=== PATIENT | female | born 1930 | race Caucasian/White ===

== ENCOUNTER 2017-11-11 09:55 | Outpatient (CLI) | payer MEDICARE, OTHER ==
--- NOTE | 2017-11-11 12:53 | CT ---
ABDOMEN AND PELVIS CT SCAN WITH IV CONTRAST: History: 87-year-old female with history of absent bowel sounds. History of prior mass found on vaginal ultras ound. Weight loss, incontinence, burning in the bladder. History of uterine cancer with prior hystere ctomy. Comparison: 04-24-[address]; pelvic CT 12-17-16 FINDINGS: There is a somewhat mosaic nonspecific appearance to the visualized lower lungs. The liver, gallbladd er, and spleen appear unremarkable. Again noted is a stable 1.3 x 1.8 cm diameter cystic focus in the region of the pancreas. Right and left adrenal glands are borderline in size but stable. Stable righ t renal cyst and some scarring of the left kidney as well as a 0.9 cm diameter slightly hyperdense ex ophytic focus off the anterior upper pole of the left kidney although this is stable in size when com pared to the prior 04-24-16 study. There is an approximately 4 x 6 cm diameter, somewhat lobulated sof t tissue mass noted anterior and superior to the bladder which appears to be invading the bladder wit h some associated bladder wall thickening. There is an approximately 1.4 cm diameter mass adjacent to the left side of the rectum, probably an enlarged lymph node. There appear to be several other enlar ged left pelvic lymph nodes up to 0.9 cm short axis. There is no evidence for renal hydronephrosis. T here are bilateral fat containing inguinal hernias. There is some colonic sigmoid colon diverticulosi s without acute diverticulitis. IMPRESSION: Developing large lobulated poorly circumscribed mass anterior and superior to the bladder which appea rs to invade the bladder as well as some developing adenopathy in the left perirectal region and left sided pelvis, given the history of prior uterine cancer, this is certainly suspicious for recurrent disease and metastasis. Stable right renal cyst and small exophytic hyperdense focus of the left kidn ey, unchanged from 04-24-16. Stable pancreatic cyst or cystic mass. Mild increased markings in the low er lung zones in a somewhat mosaic pattern but no evidence for overt metastasis. Normal appearing noel endix. Bilateral fat containing inguinal hernias. Sigmoid colon diverticulosis without acute divertic ulitis. CODE T POS: [facility]
[2017-11-11] MEDS ORDERED: Iopamidol 370 76% 100 ML VIAL ONE (16:29)
[2017-11-11] MEDS ORDERED: Iopamidol 370 76% 50 ML VIAL FS ONE (16:29)
== END 2017-11-11 09:56 | disposition home or self-care (01) ==
LOC: CT 09:55
PROVIDERS: ATTEND Obstetrics & Gynecology
DX: R10.2 Pelvic and perineal pain (principal); R19.11 Absent bowel sounds; N32.9 Bladder disorder, unspecified; N28.1 Cyst of kidney, acquired; K76.89 Other specified diseases of liver; K86.2 Cyst of pancreas; R91.8 Other nonspecific abnormal finding of lung field; K40.90 Unilateral inguinal hernia, without obstruction or gangrene, not specified as recurrent; K57.30 Diverticulosis of large intestine without perforation or abscess without bleeding; Z90.710 Acquired absence of both cervix and uterus
CPT/HCPCS: 74177

== ENCOUNTER → 2017-11-23 | Day surgery (SDC) | payer MEDICARE, OTHER ==
[2017-11-20 09:34] VITALS: BMI 24.1
[~2017-11-23] MED LIST: FLU VACC QS2017-18 36 mo. & older 0.5 ML SYRINGE IM ONE; Fentanyl 100 MCG/2 ML VIAL ONE; Midazolam HCl 2 mg/2 ml Vial ONE; Prevnar 13-Val Conj/PF 0.5 ML SYRINGE IM ONE; Sodium Bicarbonate 2.5 MEQ/5 ML VIAL ONE
[2017-11-23 09:26] LABS: INR-International Normal Ratio 1.3; PTT 26.6 SEC (22.9-36.1); Prothrombin Time 16.1 SEC (12.0-14.7)
--- NOTE | 2017-11-23 14:44 | CT ---
CT GUIDED RETROPERITONEAL BIOPSY: HISTORY: Patient with endometrial cancer. New pelvic mass. COMPARISON: CT abdomen and pelvis from 11/11/2017. FINDINGS: The patient is brought to the CT suite. All questions were answered. Informed consent was obtained. Time out was performed. The patient's pelvis was prepped and draped in a normal sterile fashion. Approximately 8 mL of buffe red Lidocaine was instilled into the superficial and deep soft tissues, after informed consent was ob tained and the time out was performed. A small dermatotomy was made. The mass was accessed first via a 17 gauge introducer. Subsequently, using an 18 gauge BioPince needle, a total of two 22 mm cores was obtained. Pathology confirmed adeq uacy. The patient tolerated the procedure well, without complication. IMPRESSION: Technically successful CT guided pelvic mass biopsy. POS: [facility]
== END ==
LOC: RAD 08:49
PROVIDERS: ATTEND Obstetrics & Gynecology
PROC: 0WBH3ZX Excision of Retroperitoneum, Percutaneous Approach, Diagnostic (ICD-10-PCS; principal; 2017-11-23)
DX: C67.9 Malignant neoplasm of bladder, unspecified (principal); C54.1 Malignant neoplasm of endometrium; N39.3 Stress incontinence (female) (male); L29.8 Other pruritus; I10 Essential (primary) hypertension; J45.909 Unspecified asthma, uncomplicated; N39.0 Urinary tract infection, site not specified; E78.5 Hyperlipidemia, unspecified; E07.9 Disorder of thyroid, unspecified; Z88.1 Allergy status to other antibiotic agents; Z88.8 Allergy status to other drugs, medicaments and biological substances; Z79.899 Other long term (current) drug therapy; Z98.890 Other specified postprocedural states
CPT/HCPCS: 36415; 49180; 77012; 85610; 85730; 88305; 88333; 88342; J2250; J3010

== ENCOUNTER 2017-11-24 18:36 | Inpatient (IN) | payer MEDICARE, OTHER ==
[~2017-11-24 18:36] MED LIST changes: -FLU VACC QS2017-18 36 mo. & older 0.5 ML SYRINGE IM ONE; -Fentanyl 100 MCG/2 ML VIAL ONE; +ISOVUE-370 76%-LOCM 1 ML ONE; -Midazolam HCl 2 mg/2 ml Vial ONE; -Prevnar 13-Val Conj/PF 0.5 ML SYRINGE IM ONE; -Sodium Bicarbonate 2.5 MEQ/5 ML VIAL ONE
[2017-11-24 19:29] LABS: Hemoglobin 13.5 g/dL (12.0-16.0); Mean Corpuscular HGB CONC 32.3 g/dL (32.0-36.0); Mean Corpuscular Hemoglobin 27.7 pg (27.0-31.0); Mean Corpuscular Volume 85.5 fl (81.0-99.0); Mean Platelet Volume 6.4 fL (7.4-10.4); Platelet Count 249 thou/uL (130-400); RBC Distribution Width 13.3 % (11.5-14.5); Red Blood Cell (RBC) Count 4.87 mill/uL (4.20-5.40); White Blood Cell (WBC) Count 25.4 thou/uL (4.8-10.8)
[2017-11-24 19:33] LABS: INR-International Normal Ratio 1.3; PTT 29.6 SEC (22.9-36.1); Prothrombin Time 16.4 SEC (12.0-14.7)
[2017-11-24 19:45] LABS: Band 4 % (5-11); Lymphocytes 8 % (21-51); MDiff Complete? YES; Monocytes 3 % (0-10); Neutrophil 85 % (42-75); PLT Morphology Comment Appears Adequate; RBC Morphology Normal
[2017-11-24 19:46] LABS: ALT (SGPT) 12 U/L (8-55); AST (SGOT) 14 U/L (5-34); Albumin 3.5 g/dL (3.4-4.8); Alkaline Phosphatase 106 U/L (40-150); Anion Gap 14 mmol/L (10-20); BUN (Urea Nitrogen) 20 mg/dL (9.8-20.1); Bilirubin, Total 0.4 mg/dL (0.2-1.2); Calc. Creatinine Clearance 0 mL/min (70-130); Calcium 9.6 mg/dL (7.8-10.44); Carbon Dioxide 24 mmol/L (23-31); Chloride 100 mmol/L (98-107); Estimated GFR-MDRD 58; Glucose 189 mg/dL (83-110); Potassium 3.6 mmol/L (3.5-5.1); Protein, Total 6.5 g/dL (6.0-8.3); Sodium 134 mmol/L (136-145)
[2017-11-24 19:50] LABS: CKMB 1.9 ng/mL (0-6.6); Troponin I 0.262 ng/mL (< 0.028)
--- NOTE | 2017-11-24 19:52 | RAD ---
SINGLE VIEW OF THE CHEST 11/24/17 COMPARISON: 12/17/16 HISTORY: Shortness of breath. FINDINGS: Single view of the chest shows an enlarged but stable cardiomediastinal silhouette. Increased interst itial lung markings are stable. There is no evidence of consolidation, mass, or pleural effusion. IMPRESSION: 1. No evidence of acute cardiopulmonary disease. 2. Cardiomegaly. POS: [facility]
[2017-11-24] MEDS ORDERED: MEROPENEM 1 GM/50 ML 1 GM in Premix Bag 1 BAG IVPB SCH (22:00)
[2017-11-24 22:12] LABS: Bilirubin Negative (Negative); Blood, Urine Trace (Negative); Clarity CLEAR (Clear); Glucose, Urine (Dipstick) Negative (Negative); Leukocyte Negative (Negative); Nitrite Negative (Negative); Protein, Urine (Dipstick) Negative (Neg-Trace); Urobilinogen 0.2 mg/dL (0.2-1.0)
[2017-11-24 22:13] LABS: Bacteria/HPF None Seen HPF (None Seen); Hyaline Casts/LPF 0-3 HYALINE CAST LPF (0-3 Hyaline); Pathc Cast-AUWi Flag 0.14 (0-2.49); Squamous Epithelial 0-3 HPF (0-3); WBC/HPF 0-3 HPF (0-3)
--- NOTE | 2017-11-24 22:59 | CT ---
CT OF THE ABDOMEN AND PELVIS WITH CONTRAST 11/24/17 COMPARISON: 11/11/17, CT guided biopsy 11/23/17, CT abdomen/pelvis 04/25/16. HISTORY: Shortness of breath for the past few hours. Abdominal pain. Recent bladder biopsy. TECHNIQUE: Multiple contiguous axial images were obtained in a CT of the abdomen and pelvis with contrast. Coron al reformats were performed. FINDINGS: There are hypodensities in bilateral kidneys which likely represent simple cysts. There is a 1.1 cm h yperdensity emanating from the anterior and superior pole of the left kidney which may represent a hy perdense cyst. This is grossly stable compared to the CT from 2016. The liver, gallbladder, adrenal glands, and spleen are unremarkable. There is a hypodensity in the sp [place] measuring 1.5 cm in size which likely represents a cyst and also remains stable. There is a large mass emanating from the anterior aspect of the urinary bladder. This measures 5.8 cm in greatest dimension. There is a small amount of hyperdensity adjacent to this mass which may repre sent a small amount of post biopsy hemorrhage. A small amount of air adjacent to the mass and in the abdominal wall are from recent biopsy. A large amount of pneumoperitoneum is not seen. A small amount of free fluid is seen in the pelvis. Scattered diverticula are see in the colon. The small bowel is normal in caliber. There is a 1.9 cm m ass adjacent to the rectum which may represent an enlarged perirectal lymph node. There are mildly en larged lymph nodes on the left pelvic sidewall and enlarged lymph node in the left perirectal space m easuring 1.9 cm in size. No retroperitoneal adenopathy is seen. Atherosclerotic calcifications are s een in the aorta. IMPRESSION: 1. Bladder mass with adjacent mild stranding changes likely representing a small amount of post biopsy edema and small amount of hemorrhage. 2. Diverticulosis. 3. Enlarged left pelvis and perirectal lymph nodes. 4. Bilateral renal cysts. 5. There is a hyperdensity emanating from the left kidney which appears stable and likely repres ents a hyperdense cyst. 6. Pancreatic cyst. POS: [facility]
[2017-11-24 23:38] LABS: Troponin I 0.488 ng/mL (< 0.028)
[2017-11-25] MEDS ORDERED: Mag-Al 1200 mg/1200 mg/30 ML UDCUP PO PRN (00:57)
[2017-11-25] MEDS ORDERED: Ondansetron ODT 4 MG TAB PO PRN (00:57)
[2017-11-25] MEDS ORDERED: Sodium Chloride 0.65% Nasal 44 ML BOT EA NARE PRN (00:57)
[2017-11-25] MEDS ORDERED: hydrALAZINE 20 MG/ML VIAL SLOW IVP PRN (00:57)
[2017-11-25] MEDS ORDERED: Zolpidem Tartrate 5 MG TAB PO PRN (00:57)
[2017-11-25] MEDS ORDERED: Ondansetron HCl/PF 4 MG/2 ML Vial IVP PRN (00:57)
[2017-11-25] MEDS ORDERED: Loratadine 10 MG TAB PO PRN (00:57)
[2017-11-25] MEDS ORDERED: Senokot 8.6 MG TAB PO PRN (00:57)
[2017-11-25] MEDS ORDERED: Eucerin (Mineral Oil/Petrolatum,White) 30 gm Jar TOP PRN (00:57)
[2017-11-25] MEDS ORDERED: Chloraseptic Spray 180 ml Bottle PO PRN (00:57)
[2017-11-25] MEDS ORDERED: Loperamide HCl 2 MG CAP PO PRN (00:57)
[2017-11-25] MEDS ORDERED: Milk Of Magnesia 30 ML UDCUP PO PRN (00:57)
[2017-11-25] MEDS ORDERED: Artificial Tears 18 DROP/0.9 ML EA EYE PRN (00:57)
[2017-11-25 01:33] VITALS: BMI 26.4
[2017-11-25 02:26] LABS: Troponin I 0.667 ng/mL (< 0.028)
--- NOTE | 2017-11-25 02:41 | HP ---
PRIMARY CARE PHYSICIAN: Dr. Hunter Pinto. DATE OF SERVICE: 11/24/2017 REASON FOR ADMISSION: Dyspnea, sepsis, non-ST elevation IN, type 2. HISTORY OF PRESENT ILLNESS: An 87-year-old female who has underlying history of paroxysmal atrial fibrillation on chronic anticoagulation therapy with warfarin. Warfarin therapy was stopped 5 days ago, because patient had bladder biopsy on 11/23/2017, subsequently, pathology report came back as positive of moderately differentiated adenocarcinoma. This patient has underlying history of endometrial cancer, and she had a hysterectomy done. Patient is following Dr. Ralph Gutierrez. Patient's tractor mechanic apprentice is Dr. Torres. The patient at this time, came to emergency room with a complaint of intermittent shortness of breath for last couple of days, patient did not have any fever, but she was found with leukocytosis with bandemia. She denies any chest pain. She denies any orthopnea, PND, or leg swelling. She denies any calf tenderness. She denies any pleuritic chest pain. In the emergency room, patient had elevated troponin and second set of troponin was significantly abnormal. Her BNP was also elevated. Patient had CT of abdomen and pelvis, which showed bladder mass, diverticulosis. Chest x-ray was done, which showed cardiomegaly without any acute process. REVIEW OF SYSTEMS: Please see my HPI for pertinent positive and negative. All other review of systems reviewed and negative except as mentioned in the HPI: Constitutional: Weight loss or gain, ability to conduct usual activities. Skin : Rash, itching. Eyes: Double vision, pain. ENT/Mouth: Nose bleeding, neck stiffness, pain, tenderness. Cardiovascular: Palpitations, dyspnea on exertion , orthopnea. Respiratory: Shortness of breath, wheezing, cough, hemoptysis, fever, or night sweats. Gastrointestinal: Poor appetite, abdominal pain, heartburn, nausea, vomiting, constipation, or diarrhea. Genitourinary: Urgency , frequency, dysuria, nocturia. Musculoskeletal: Pain, swelling. Neurologic/ Psychiatric: Anxiety, depression. Allergy/Immunologic: Skin rash, bleeding tendency. PAST MEDICAL HISTORY: Paroxysmal atrial fibrillation, uterine cancer, hypothyroidism, hypertension, dyslipidemia, osteoarthritis. PAST SURGICAL HISTORY: Hysterectomy, cataract surgery, back surgery, rotator cuff repair bilaterally. PAST PSYCHIATRIC HISTORY: Reviewed and negative. SOCIAL HISTORY: Patient is . She lives in [facility]. No history of tobacco, alcohol, or illicit drug abuse. FAMILY HISTORY: Positive for coronary artery disease to mother, father, and mother of congestive heart failure. ALLERGIES: ACETAMINOPHEN, LIPITOR, CALCIUM CARBONATE, CELEBREX, KEFLEX, CIPRO, CODEINE, DOXYCYCLINE, CRESTOR, LEXAPRO, LEVAQUIN NIACIN, OPIOID, LYRICA, PROPOXYPHENE, ZANAFLEX. CURRENT HOME MEDICATIONS: Cardizem-CD 180 mg p.o. daily, warfarin 5 mg p.o. daily, hydrochlorothiazide 12.5 mg p.o. daily, ramipril 2.5 mg p.o. daily, Synthroid 88 mcg p.o. daily, Singulair 10 mg p.o. daily, Xalatan eyedrops at bedtime, tramadol 50 mg twice daily, Flonase nasal spray b.i.d., vitamin D3 of 5000 units p.o. daily, coenzyme Q10 of 100 mg p.o. daily, dehydroepiandrosterone 25 mg p.o. daily, probiotic 1 capsule daily. EMERGENCY ROOM COURSE: Patient has received aspirin 324 mg, vancomycin 1 gram, and meropenem 1 gram. PHYSICAL EXAMINATION: VITAL SIGNS: On arrival, blood pressure 117/93, pulse 78, respiratory rate 18, temperature 97.9, saturation 89% on room air, weight 69.4 kilograms. GENERAL: Patient is currently alert, awake, no obvious acute distress. HEAD: Normocephalic, atraumatic. EYES: Pupils round, reactive to light. Extraocular muscle intact. ENT: Oropharynx within normal limits. Moist mucous membranes. No oral lesion , no pharyngeal erythema, no exudate. NECK: Supple, no JVD, no thyromegaly, no carotid bruit, no jugular venous distention. LUNGS: Clear to auscultation without any rhonchi or rales. CARDIAC: S1, S2 appears regular. No murmur, no gallop, no rub. ABDOMEN: Soft, bowel sounds present. No peritoneal sign, no guarding, no rigidity, no rebound, no peritoneal sign, no organomegaly, no mass. BACK: Unremarkable, no CVA tenderness. EXTREMITIES: Upper extremity passive movement of all joints are normal. Lower extremities: No edema. Good peripheral pulsation. SKIN: No skin rash other than the patient does have surgical biopsy site, which is covered with Band-Aid and site is clean and healthy. HEMATOLOGICAL SYSTEM: No lymphadenopathy. PSYCHIATRIC: Normal affect. SIGNIFICANT LABORATORY DATA: EKG showing normal sinus rhythm, premature atrial complexes, right incomplete bundle branch block pattern, first-degree AV block. Chest x-ray based on my review, cardiomegaly without any acute process. CBC: WBC 25.4, hemoglobin 13.5, platelet 249 with bandemia. INR 1.3. BMP: Sodium 134, potassium 3.6, chloride 100, carbon dioxide 24, anion gap 14, BUN 20 , creatinine 0.91, glucose 189, calcium 9.6. LFT: AST 14, ALT 12, alkaline phosphatase was 106, albumin 3.5. CK-MB 1.9, troponin 0.262 and then 0.488. BNP 421.6. Urinalysis unremarkable. ASSESSMENT AND PLAN: 1. Dyspnea on exertion. At this point, EKG is nonspecific. She has elevated troponin. I am suspicious for angina equivalent versus new-onset congestive heart failure given elevated BNP. At this point, patient will need serial cardiac enzymes. Cardiology will be consulted. Echocardiography will be obtained and we will treat with Lasix 20 mg IV daily. We will also continue with the DuoNeb therapy q.6 hourly p.r.n. basis. 2. Non-ST segment elevation myocardial infarction, type 2. This could be an angina equivalent, but patient does not have any EKG changes, does not have any chest pain. We will consult Cardiology for their opinion. Echocardiography will be obtained. We will do serial cardiac enzymes x3. 3. Leukocytosis. Looking at old record, patient does have chronically elevated WBC count. This patient has bandemia and few days ago, patient has bladder biopsy done so worrisome for infection and that is why we will send blood culture, urine culture, and start empiric antibiotic therapy and we will monitor for culture result and narrow down antibiotic spectrum. 4. Paroxysmal atrial fibrillation, currently in sinus rhythm. Continue Cardizem-CD 180 mg p.o. daily. Patient was off on warfarin therapy and now, we will restart warfarin therapy. 5. Chronic anticoagulation. Patient was off on warfarin therapy for bladder biopsy. Now, we will start warfarin therapy and monitor PT/INR on daily basis. 6. Adenocarcinoma originated from endometrial cancer. This patient's pathology report is consistent with moderately differentiated adenocarcinoma of endometrial type. At this point, we will consult TILE FITTER doctor, Dr. Ralph Gutierrez as well as palliative care team as well for goal of care. May consider Oncology evaluation during this admission for their opinion. 7. Hypertension. Patient is currently on Cardizem-CD 180 mg p.o. daily along with hydrochlorothiazide and ramipril, and we will titrate blood pressure medication while in hospital. 8. Glaucoma. Continue Xalatan eyedrops at bedtime. 9. Asthma. Continue Singulair 10 mg p.o. daily, DuoNeb q.6 hourly p.r.n. 10. Hypothyroidism. Continue Synthroid 88 mcg p.o. daily. 11. Deep venous thrombosis prophylaxis. Patient is already on low warfarin therapy. 12. Gastrointestinal prophylaxis. Pepcid 20 mg p.o. b.i.d. 13. Code status: Patient is DNR. This was confirmed with the patient. She does not want to be resuscitated in case of cardiopulmonary arrest. She does not want to try even CPR or intubation in case of cardiopulmonary arrest and she made decision for DNR and that order is written and she does not have any surrogate decision maker. Disposition plan based on clinical course. We are expecting patient's stay in hospital more than 2 midnights. Plan of care discussed with the patient in detail. MTDD
[2017-11-25 03:32] LABS: #Basophils 0.1 thou/uL (0.0-0.2); #Eosinphils 0.1 thou/uL (0.0-0.7); #Lymphocytes 2.5 thou/uL (1.20-3.40); #Monocytes 1.6 thou/uL (0.11-0.59); #Neutrophils 20.3 thou/uL (1.40-6.50); %Basophils 0.2 % (0.0-1.0); %Eosinophils 0.4 % (0.0-10.0); %Lymphocytes 10.1 % (21.0-51.0); %Monocytes 6.4 % (0.0-10.0); %Neutrophils 82.9 % (42.0-75.0); Hemoglobin 12.6 g/dL (12.0-16.0); Mean Corpuscular HGB CONC 31.9 g/dL (32.0-36.0); Mean Corpuscular Hemoglobin 27.3 pg (27.0-31.0); Mean Corpuscular Volume 85.5 fl (81.0-99.0); Mean Platelet Volume 6.5 fL (7.4-10.4); Platelet Count 208 thou/uL (130-400); RBC Distribution Width 13.3 % (11.5-14.5); White Blood Cell (WBC) Count 24.4 thou/uL (4.8-10.8)
[2017-11-25 03:39] LABS: INR-International Normal Ratio 1.4; PTT 25.6 SEC (22.9-36.1); Prothrombin Time 17.2 SEC (12.0-14.7)
[2017-11-25 03:43] LABS: Anion Gap 13 mmol/L (10-20); BUN (Urea Nitrogen) 17 mg/dL (9.8-20.1); Calc. Creatinine Clearance 62 mL/min (70-130); Calcium 9.4 mg/dL (7.8-10.44); Carbon Dioxide 24 mmol/L (23-31); Chloride 101 mmol/L (98-107); Estimated GFR-MDRD 78; Glucose 116 mg/dL (83-110); Potassium 3.3 mmol/L (3.5-5.1); Sodium 135 mmol/L (136-145)
[2017-11-25 03:49] LABS: CKMB 3.1 ng/mL (0-6.6)
[2017-11-25 03:50] LABS: Troponin I 0.517 ng/mL (< 0.028)
[2017-11-25 03:51] LABS: Critical Call Chem Troponin I RESULT DECREASING
[2017-11-25] MEDS: MEROPENEM 1 GM/50 ML 1 GM in Premix Bag 1 BAG IVPB SCH ×2 (05:42→14:00)
[2017-11-25] MEDS: Levothyroxine Sodium 88 MCG TAB PO SCH (05:43)
[2017-11-25 08:03] LABS: CKMB 3.1 ng/mL (0-6.6)
[2017-11-25 08:11] LABS: Critical Call Chem Troponin I RESULT DECREASING; Troponin I 0.329 ng/mL (< 0.028)
--- NOTE | 2017-11-25 08:27 | PDOC.EVN ---
Event Note - Event Note Event Note: QUALITY ASSURANCE TEST PROGRAM MANAGER SERVICE Ms Tuttle is 87 year old WF well known to me with h/o Stage 1 Grade 1 endometrial cancer-with superficial myometrial invasion woho underwent robotic tlh/bso approximately 18 months ago. Patient had low risk stage and tumor grade and was not candidate for adjuvant therapy such as XRT/Chemo. Recent exam and clinical history noted for pelvic mass and patient pain. CT guided biopsy performed 11/23 on mass c/w adenocarcinoma -moderately differentiated. Admit 11/24 for sepsis and possible [place]. Recommend oncology/ rad onc consult for recurrent endometrial cancer therapy once patient stabilized medically.
[2017-11-25] MEDS ORDERED: Enoxaparin Sodium 40 MG/0.4 ML SYRINGE SC SCH (09:00)
[2017-11-25] MEDS: Furosemide 20 MG/2 ML VIAL SLOW IVP SCH (11:19)
[2017-11-25] MEDS: Fluticasone Propionate Nasal Spray 16 gm Bottle NASAL SCH (11:20)
[2017-11-25] MEDS: Famotidine 20 MG TAB PO SCH ×2 (11:20→21:48)
[2017-11-25] MEDS: traMADol HCl 50 MG TAB PO SCH ×2 (11:20→21:49)
[2017-11-25] MEDS: Ubidecarenone 50 MG CAP PO SCH (11:21)
[2017-11-25] MEDS: Aspirin 325 MG TAB PO SCH (11:21)
[2017-11-25] MEDS: Hydrochlorothiazide 25 MG TAB PO SCH (11:22)
[2017-11-25] MEDS: Lactinex Tablet PO SCH (11:22)
[2017-11-25] MEDS ORDERED: Potassium Chloride 20 MEQ TAB PO SCH (12:00)
[2017-11-25] MEDS ORDERED: Digoxin 0.5 MG/2 ML AMP SLOW IVP SCH (12:00)
--- NOTE | 2017-11-25 16:55 | PDOC.PN ---
- Subjective Encounter Start Date: 11/25/17 Encounter Start Time: 10:15 -: old records requested/rev Pt seen and examined, chart reviewed in its entirety, this is my first visit with this patient. Case discussed over the phone with Dr Rosas. She has requested Onc eval for treatment options. Pt complains of pain to her abdomen, no F/C, +nausea, no vomiting. no D/C, no CP or SOB 10 point ROS performed and neg for all systems except as per HPI - Objective Resuscitation Status: Resuscitation Status DNR:Do Not Resuscitate MAR Reviewed: Yes Vital Signs & Weight: Vital Signs (12 hours) Pulse BP 11/25/17 15:00 83 11/25/17 11:22 131/78 Weight Weight 158 lb 9.6 oz I&O: 11/24/17 11/25/17 11/26/17 06:59 06:59 06:59 Intake Total 340 Balance 340 Result Diagrams: 11/25/17 03:19 11/25/17 03:19 Radiology Reviewed by me: Yes EKG Reviewed by me: Yes Phys Exam - Physical Examination Constitutional: NAD HEENT: PERRLA, moist MMs, sclera anicteric, oral pharynx no lesions Neck: no nodes, no JVD, supple, full ROM Respiratory: no wheezing, no rales, no rhonchi, clear to auscultation bilateral Cardiovascular: RRR, no significant murmur, no rub Gastrointestinal: soft, no distention, positive bowel sounds diffusely tender, particularly in SP region Musculoskeletal: pulses present, edema present Neurological: non-focal, normal sensation, moves all 4 limbs Lymphatic: no nodes Psychiatric: normal affect, A&O x 3 Skin: no rash, normal turgor, cap refill <2 seconds Dx/Plan (1) Chronic back pain Code(s): M54.9 - DORSALGIA, UNSPECIFIED; G89.29 - OTHER CHRONIC PAIN Status: Chronic Qualifiers: Back pain location: low back pain Back pain laterality: bilateral Sciatica presence: with sciatica Sciatica laterality: bilateral sciatica Qualified Code(s): M54.42 - Lumbago with sciatica, left side; M54.41 - Lumbago with sciatica, right side; M54.41 - Lumbago with sciatica, right side; G89.29 - Other chronic pain; G89.29 - Other chronic pain Comment: restarted tramadol BID (2) HTN (hypertension) Code(s): I10 - ESSENTIAL (PRIMARY) HYPERTENSION Status: Chronic Qualifiers: Hypertension type: essential hypertension Qualified Code(s): I10 - Essential (primary) hypertension (3) Asthma Code(s): J45.909 - UNSPECIFIED ASTHMA, UNCOMPLICATED Status: Acute Qualifiers: Asthma severity: mild Asthma persistence: intermittent Asthma complication type: uncomplicated Qualified Code(s): J45.20 - Mild intermittent asthma, uncomplicated (4) jail current use of anticoagulant Code(s): Z79.01 - ROLL EXAMINER (CURRENT) USE OF ANTICOAGULANTS Status: Chronic (5) Sepsis Code(s): A41.9 - SEPSIS, UNSPECIFIED ORGANISM Status: Acute Qualifiers: Sepsis type: sepsis due to unspecified organism Qualified Code(s): A41.9 - Sepsis, unspecified organism (6) Hypokalemia Code(s): E87.6 - HYPOKALEMIA Status: Acute Comment: 3.3 today, repeat in AM (7) Endometrial cancer, grade I Code(s): C54.1 - MALIGNANT NEOPLASM OF ENDOMETRIUM Status: Chronic (8) Atrial fibrillation Code(s): I48.91 - UNSPECIFIED ATRIAL FIBRILLATION Status: Chronic Comment: paroxysmal, on anticoagulation - Plan cont current plan of care, continue antibiotics, PT/OT, social sciences research scientist, out of bed/ambulate * .
[2017-11-25] MEDS ORDERED: Dronedarone HCl 400 MG TAB PO SCH (20:00)
[2017-11-25] MEDS: Warfarin Sodium 5 MG TAB PO SCH (20:11)
[2017-11-25] MEDS: Digoxin 0.5 MG/2 ML AMP SLOW IVP SCH (20:34)
[2017-11-25] MEDS: Latanoprost 0.005% Ophth Soln 2.5 ml Bottle EA EYE SCH (21:49)
[2017-11-25] MEDS: Montelukast Sodium 10 mg Tablet PO SCH (21:49)
[2017-11-25] MEDS: Metamucil PACK PO PRN (22:01)
[2017-11-26] MEDS: Fluticasone Propionate Nasal Spray 16 gm Bottle NASAL SCH ×3 (00:08→21:39)
[2017-11-26] MEDS: MEROPENEM 1 GM/50 ML 1 GM in Premix Bag 1 BAG IVPB SCH ×4 (00:12→21:41)
[2017-11-26] MEDS: Digoxin 0.5 MG/2 ML AMP SLOW IVP SCH (00:12)
[2017-11-26 05:06] LABS: ALT (SGPT) 11 U/L (8-55); AST (SGOT) 19 U/L (5-34); Albumin 2.9 g/dL (3.4-4.8); Alkaline Phosphatase 95 U/L (40-150); Anion Gap 15 mmol/L (10-20); BUN (Urea Nitrogen) 24 mg/dL (9.8-20.1); Bilirubin, Total 0.4 mg/dL (0.2-1.2); Calc. Creatinine Clearance 55 mL/min (70-130); Calcium 9.3 mg/dL (7.8-10.44); Carbon Dioxide 22 mmol/L (23-31); Chloride 101 mmol/L (98-107); Estimated GFR-MDRD 67; Globulin 3.2 g/dL (2.4-3.5); Glucose 102 mg/dL (83-110); Magnesium 2.2 mg/dL (1.6-2.6); Potassium 4.5 mmol/L (3.5-5.1); Protein, Total 6.1 g/dL (6.0-8.3); Sodium 133 mmol/L (136-145)
[2017-11-26] MEDS: Levothyroxine Sodium 88 MCG TAB PO SCH (05:41)
[2017-11-26] MEDS: Aspirin 325 MG TAB PO SCH (09:22)
[2017-11-26] MEDS: Dronedarone HCl 400 MG TAB PO SCH ×2 (09:22→17:55)
[2017-11-26] MEDS: Famotidine 20 MG TAB PO SCH ×2 (09:23→21:39)
[2017-11-26] MEDS: Digoxin 0.125 MG TAB PO SCH (09:23)
[2017-11-26] MEDS: Furosemide 20 MG/2 ML VIAL SLOW IVP SCH (09:23)
[2017-11-26] MEDS: Hydrochlorothiazide 25 MG TAB PO SCH (09:24)
[2017-11-26] MEDS: traMADol HCl 50 MG TAB PO SCH ×2 (09:24→21:40)
[2017-11-26] MEDS: Lactinex Tablet PO SCH (09:24)
[2017-11-26] MEDS: Ubidecarenone 50 MG CAP PO SCH (09:25)
--- NOTE | 2017-11-26 10:26 | ADD-CON ---
ADDENDUM DATE OF CONSULTATION: 11/25/2017 DATE OF ADMISSION: 11/24/2017 INDICATION FOR CONSULTATION: An 87-year-old female with a history of intermittent atrial fibrillatio n who was admitted to the hospital due to abdominal pain and shortness of breath. She became very sh ort of breath at home. She had a recent biopsy, which has now been diagnosed as adenocarcinoma of th e endometrial type, but she has had a laparoscopic abdominal hysterectomy and bilateral salpingo-ooph orectomy about a year and a half ago and apparently she developed some abdominal pain and CT scan was found to have abdominal mass, which was attached to the bladder apparently and this appears to be ad enocarcinoma. Biopsy was performed on Thursday and Thursday night, she started feeling rather bad or afternoon became more short of breath. She has some occasional chest heaviness. She presented to the hospital was in atrial fibrillation, rapid ventricular response. Her cardiac enzymes are rhett vated, which certainly can be attributed to the atrial fibrillation with rapid ventricular response. Her BNP was slightly elevated at 421. She did have an echocardiogram performed, which does not show any significant abnormalities as far as wall motion abnormalities. She has a normal ejection fracti on. She did have some right-sided dilatation. The left atrium was also mildly dilated, she has ejec tion fraction of 60%-65%. She has some mild aortic valve sclerosis. She did have atrial fibrillatio n noted on the study, it is difficult to determine whether or not she has diastolic dysfunction, but this would be a good possibility. At this time, she has the only complains of some chest discomfort. She is breathing well relatively comfortable. She has no complaints of shortness of breath or ches t discomfort at the time that I am visiting with her. Please refer to notes already dictated by the nurse practitioner. PHYSICAL EXAMINATION: VITAL SIGNS: Blood pressure 131/78, heart rates in the 80s-100s and shows atrial fibrillation at thi s time, respiratory rate is about 18-20. She is afebrile. HEENT: Shows head to be normocephalic, atraumatic. Carotid pulses are present. There were no signi ficant bruits. CHEST: Clear to auscultation. CARDIOVASCULAR: Exam reveals an irregularly irregular rhythm. ABDOMEN: Tender throughout, she has a small bandage of incisional area for the biopsy. Otherwise, t here were no significant abnormalities. She does have bowel sounds present. EXTREMITIES: Showed no clubbing, cyanosis, or edema. Pedal pulses are present. NEUROLOGICAL: She appears to be intact. SKIN: Warm and dry. LABORATORY DATA: Shows white blood cell count of 24,400, hemoglobin 12.6. Creatinine 0.7 with a sod ium of 125, and troponin I's are noted for 0.448 on admission and then increased up to 0.67, is now d ecreased a little bit down to 0.329. BNP was slightly elevated at 429. IMPRESSION: 1. Atrial fibrillation with rapid ventricular response causing abnormal cardiac enzymes be slightly elevated and some chest discomfort. There were no significant EKG changes to indicate ischemia. I w ould continue her present medications. She had been on Coumadin in the past for intermittent atrial fibrillation. She has been on diltiazem for rate control and has been intermittently in and out of a trial fibrillation. She has been on diltiazem for rate control and is intermittently in and out of a trial fibrillation today and also has been given digoxin. I will start her on Multaq and hopefully, we will able to maintain the sinus rhythm at this time. 2. Abnormal cardiac enzymes, which are related to the atrial fibrillation. At this time, I will jus t continue her present medications. She is not a good candidate at this time to undergo cardiac cath eterization or stress testing. She has not been found to have any coronary artery disease in the pas t, and she has a normal ejection fraction by echocardiogram today. 3. Recurrence of adenocarcinoma, I believe Oncology has been consulted to see the patient for furthe r evaluation and treatment. 4. History of hypertension, this is under good control at this time. 5. Possible sepsis with elevated WBC of 24,400, this will be also dealt with by the primary care ser vice and Oncology. From a cardiac standpoint, I believe, she is relatively stable overall. We will need to have rate control of the atrial fibrillation if we cannot maintain sinus rhythm. For the other past medical history, social history, family history, review of systems, please refer t o the notes dictated by the nurse practitioner.
--- NOTE | 2017-11-26 10:31 | CON ---
DATE OF CONSULTATION: 11/25/2017 PRIMARY CARE PHYSICIAN: Hunter Pinto M.D. PRIMARY FAMILY AND CONSUMER SCIENCES PROFESSOR: Carmen Torres M.D. REFERRING PHYSICIAN: Corie Rodrigez M.D. REASON FOR CARDIOLOGY CONSULT: Dyspnea and elevated troponin level. HISTORY OF PRESENT ILLNESS: Ms. Tuttle is an [id number] female with a significant history of paroxysmal atrial fibrillation, COPD/asthma and hypertension. The patient had a bladder biopsy on 11/23/2017. The patient's daughter called Dr. Torres' office on the day and reported that the nurse assisting for a bladder biopsy found out the patient was having irregular tachycardia and the patient was complained of fatigue at that time. The patient was advised to follow up with Dr. Torres' office on next day, 11/24/2017. However, the patient cancelled the appointment in the morning because she was doing well; however, at the lunch time, she felt really weak and tired, and shortness of breath. Around 4pm, the patient caregiver noticed the patient was more weak, complained of fatigue and shortness of breath, so the patient was transferred to the Emergency Department for the further evaluation and treatment. 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 The patient has a history of endometrial cancer and total hysterectomy in 05/2016. The patient had experienced of palpitation and fluttering in her chest and worsening shortness of breath yesterday prior to presenting to the Emergency Department and also the patient experienced of mild tightness at the upper chest. However, the patient denies any chest pain or numbness in the left upper extremities, nausea or vomiting, or any other complaints. She also denies dizziness or lightheadedness. The patient's Coumadin was held prior to the bladder biopsy and resumed from today by patient' s primary care doctor during this admission. The patient's INR today was 1.4. During the initial Cardiology consult assessment, the patient denies chest pain or discomfort in her chest, palpitation or fluttering in her chest and shortness of breath is stable with 1.5 liters nasal cannula. Denies dizziness, lightheadedness or any other cardiac complaints. The patient remained in sinus rhythm until 10:40 this morning. The patient converts back to atrial fibrillation with heart rate in the 110s to 130s since 10:40 this morning. The patient had an echocardiogram done in 05/2017, which shows an EF of 65%, grade I diastolic dysfunction, mild LAE, mild AV calcification, mild tricuspid regurgitation, trace mitral valve regurgitation, and mild MAC and frequent PVCs. The patient had a stress test and the last stress test was in 12/2009, which shows ejection fraction 65% with normal myocardial function with no ischemia. EKG in Dr. Torres' office shows sinus rhythm with first-degree AV block. The last EKG was done in 09/10/2017, which shows sinus rhythm with first -degree AV block, heart rate is 69. She does not have any cardiac catheterization. PAST MEDICAL HISTORY: 1. Paroxysmal atrial fibrillation. 2. Hypertension. 3. Hypothyroidism. 4. Hyperlipidemia. 5. COPD/asthma. 6. History of endometrial adenocarcinoma, grade 1. PAST SURGICAL HISTORY: 1. Total hysterectomy in 05/2016. 2. Cataract removed. 3. Skin cancer removed from the nose. FAMILY HISTORY: Significant family history of coronary artery disease. Her mother due to the congestive heart failure. SOCIAL HISTORY: She is a . [facility]. She recently has a sitter and a caregiver. She denies any tobacco, alcohol or illicit drug abuse. ALLERGIES: TYLENOL, LIPITOR, CALCIUM CARBONATE, CELEBREX, KEFLEX, CIPRO, CODEINE, DOXYCYCLINE, CRESTOR, LEXAPRO, LEVAQUIN, LYRICA, PROPOXYPHENE, and ZANAFLEX. HOME MEDICATIONS: Flonase 1 spray each naris every day, vitamin C, Mucinex, Singulair ER 10 mg once a day, Dilantin eye drop each eyes every day, cranberry concentrate 1 tablet once a day, multivitamin 1 tablet once a day, Krill oil, Loop-3 one tablet once a day, Coumadin dosage adjusted as depends on the INR level, Synthroid 88 mcg once a day, vitamin D3 5000 units once a day, probiotic 1 tablet once a day, CoQ10 100 mg once a day, DHEA 25 mg once a day, tramadol 50 mg twice a day for back pain, ramipril 2.5 mg once a day, diltiazem CD 180 mg once a day and hydrochlorothiazide 12.5 mg once a day. REVIEW OF SYSTEMS: The following complete review of systems is negative, unless otherwise mentioned in the HPI or below. CONSTITUTIONAL: No weight loss or gain. Sense of well-being, ability to conduct usual activity, exercise tolerance. SKIN: Rash, itching, change in hair growth or loss, nail changes, breast lump, tenderness, swelling or nipple discharge. EYES: No vision change, double vision, tearing, blind spots, pain. She wear glasses. HENT: Headache, vertigo, lightheadedness, nose bleeding, cold, obstruction, discharge, dental difficulty, gingival bleeding, dentures, neck stiffness, pain , obstruction, discharge, tenderness mass in thyroid or other areas. CARDIOVASCULAR: Precordial pain, substernal distress, syncope, nocturnal dyspnea, edema, cyanosis, heart murmur, varicosis, claudication. RESPIRATORY: No wheezing, stridor, cough or hemoptysis. GASTROINTESTINAL: Poor appetite, dysphagia, indigestion, abdominal pain, heartburn, eructation, nausea, vomiting, tenderness, constipation, diarrhea, abdominal stool. GENITOURINARY: Urgency, frequency, dysuria, nocturia, hematuria, polyuria, oliguria, unusual color of urine. MUSCULOSKELETAL: She had chronic back pain, but denies swelling, redness, heat of muscle or joint, limitation of motion, atrophy, cramps. NEUROLOGIC: Seizure coverage, conversion, paralyzed, tremor, incoordination. PSYCHIATRIC: Emotional problem, anxiety, depression, previous psychiatric care , unusual perception. PHYSICAL EXAMINATION: VITAL SIGNS: Blood pressure 116/68, pulse is in the 110s to 130s with AFib, temperature 98.0, 2 liters nasal cannula and O2 sat 96%. GENERAL: A well developed, well nourished without any acute distress. HEAD: Normocephalic and atraumatic. EYES: Extraocular muscle movement intact, wears glasses. ENT: Oral mucosa moist without lesion. NECK: No JVD. Neck is supple. Normal range of motion. LUNGS: Diminished at the bases, but no wheezing, rales or rhonchi noted. CARDIOVASCULAR: Irregularly irregular. No significant murmur, hives, thrill or bruits noted. There are 2+ pulses in the bilateral dorsal pedis, posterior tibial and popliteal. No edema in the lower extremities. Carotid pulses are present without bruits, rubs or thrills. ABDOMEN: Soft and bowel sounds are present. No palpitation at this time due to history of a bladder cancer. MUSCULOSKELETAL: Able to move all extremities, complained of the back pain. SKIN: Warm and dry. No skin rash or lesion or bruise noted. NEUROLOGIC: Alert and oriented x4, awake, normal affect, nonfocal, PSYCHIATRIC: Normal mood. Affect normal. IMAGING AND LABORATORY DATA: EKG: The telemetry EKG shows AFib with rapid ventricular response with a heart rate of 110-130s. WBC 20.4, hemoglobin 12.6, hematocrit 39.3 and platelet 208. INR 1.4 today. Sodium 135, potassium 3.3, BUN 17, creatinine 0.71. AST 14, ALT 12 and CK-MB is 3.1. Troponin is 0.262, 0.488, 0.667, 0.517 and 0.329. BNP is 421.6. Chest x-ray shows no evidence of acute cardiopulmonary disease with cardiomyopathy. CT scan of the abdomen shows bladder mass with adjustment of mild stranding change likely represents a small amount of post biopsy edema and a small amount of hemorrhage and diverticulitis and enlarged left pelvis and perirectal lymph nodes. Bilateral renal cysts and pancreatic cyst. ASSESSMENT AND PLAN: 1. Dyspnea on exertion, possible secondary to the chronic obstructive pulmonary disease, asthma attack. The condition is stable with 1.5 liters nasal cannula. She is on Singulair, which is managed by the patient's primary care doctor and the patient's echocardiogram was done today and the results are pending. The patient's BNP was slightly elevated today. She had a history of grade I diastolic dysfunction. She is on Lasix 20 mg IV push and hydrochlorothiazide. Again, the patient's breathing condition is stable at this moment. We would like to continue to monitor and again an echocardiogram was taken today and the result is pending at this moment. 2. Elevated troponin level. The patient's troponin level was elevated today, possible due to atrial fibrillation with rapid ventricular response, but due to the patient's age and possibly the patient is not a good candidate for cardiac catheterization. The patient's 12-lead EKG did not show any ST segment change. The patient's condition is stable. At this moment, we would like to continue to monitor on telemetry and the patient is on aspirin 325 mg once a day and JJ inhibitor. She is on the beta cuco due to a history of chronic obstructive pulmonary disease. 3. Atrial fibrillation with rapid ventricular response. The patient's heart rate is up to the 110s to 130s. She is on diltiazem 180 once a day IV push was started from today and changed to p.o. every day after IV digoxin to finish. 4. Hypertension. The patient's blood pressure is stable at this moment. We would like to continue current blood pressure medication and adjust as appropriate. 5. History of chronic obstructive pulmonary disease/asthma. The patient's condition is stable at this moment. We would like to continue to monitor. 6. Hypothyroidism. The patient is on levothyroxine, which is managed by primary care doctor. The patient's TSH will be checked tomorrow to make sure the patient and the TSH level was within the normal range. 7. Hypokalemia. The patient's potassium level is 3.3 today. The potassium chloride 40 mEq given one dose today ordered and the patient's potassium level will be checked tomorrow morning. 8. Positive for adenocarcinoma by bladder biopsy. Per patient, already discussed with Dr. Rosas, who is the patient's [employer] doctor. The patient possibly will be referred to the Oncology consult and also palliative care team consult was done today. Thank you very much for following Cardiology Service to participate in care of this patient. We will follow along with the patient's care team and make further recommendation as appropriate. AIMEE
--- NOTE | 2017-11-26 14:01 | CON ---
DATE OF CONSULTATION: 11/26/2017 REASON FOR CONSULTATION: Endometrial adenocarcinoma. HISTORY OF PRESENT ILLNESS: Ms. Tuttle is a pleasant 87-year-old female with a history o f stage I endometrial cancer in 2016. She underwent a robotic TLH-BSO approximately 18 months ago. She had low risk stage and tumor grade and was not a candidate for adjuvant therapy at that time. Mo st recently, she began to have pelvic pain and presented to Dr. Rosas for evaluation. A CT of the a bdomen and pelvis showed a soft tissue mass approximately 4 x 6 cm anterior and superior to the bladd er, it was invading the bladder wall. She then underwent a CT guided biopsy which confirmed moderate ly differentiated adenocarcinoma compatible with endometrial primary. She is ER positive. She prese nted to the emergency room on 11/24/2017 with complaints of shortness of breath, burning with urinati on. She had a mildly elevated troponin at admission. Dr. Pruitt was consulted her and felt this was due to her atrial fibrillation and not due to ischemia. She has been treated with empiric antibiotic s. Prior to this admission, the patient lived in an independent living at [facility]. Cu rrently, she denies any chest pain or shortness of breath. No abdominal discomfort, constipation or diarrhea. She still has dysuria, but it is improved with antibiotics. She does complain of weakness and fatigue. PAST MEDICAL HISTORY: 1. Paroxysmal atrial fibrillation. 2. Stage I endometrial carcinoma, status post TLH-BSO. 3. Hypothyroidism. 4. Hypertension. 5. Dyslipidemia. 6. Osteoarthritis. PAST SURGICAL HISTORY: 1. TLH-BSO. 2. Cataract surgery 3. Back surgery. 4. Rotator cuff repair. ALLERGIES: Multiple drug allergies as noted on medical record. HOME MEDICATIONS: 1. Cardizem CD 180 mg daily. 2. Flonase daily. 3. Hydrochlorothiazide 12.5 mg daily. 4. Probiotic daily. 5. Synthroid 88 mcg daily. 6. Singulair daily. 7. Altace 2.5 mg daily. 8. Tramadol 50 mg b.i.d. 9. CoQ10 daily. 10. Coumadin 5 mg daily. FAMILY HISTORY: Noncontributory. SOCIAL HISTORY: , lives in [facility]. No alcohol, tobacco or illicit ambar g use. REVIEW OF SYSTEMS: Twelve point review of system is negative except for noted in HPI. PHYSICAL EXAMINATION: VITAL SIGNS: Temperature is 97.5, pulse is 80, respiratory rate 18, BP is 121/58. She is 99% on 2 l iters. GENERAL: This is a well-developed, well-nourished female in no acute distress. HEENT: Normocephalic, atraumatic. Pupils equal and reactive to light. NECK: Supple. CARDIOVASCULAR: Irregular rate and rhythm. LUNGS: Clear. ABDOMEN: Soft, mildly tender to palpation. EXTREMITIES: No clubbing, cyanosis or edema. SKIN: No rash. HEMATOLOGIC: No petechia or purpura. NEUROLOGIC: Nonfocal. PSYCHIATRIC: The patient is alert and oriented and appropriate. PERTINENT LABORATORY AND X-RAYS: Current WBCs are 24.4, hemoglobin 12.6, hematocrit 39.3, platelet c ount is 208,000, 83% neutrophils, 10% lymphocytes. PT is 17.2, INR is 1.4, PTT is 25.6. Sodium is 1 33, potassium 4.5, chloride 101, CO2 is 22, BUN is 24, creatinine 0.81, calcium is 9.3, magnesium 2.2 , bilirubin is 0.4, AST is 19, ALT is 11, alkaline phosphatase is 95, serum total protein is 6.1, alb umin 2.9, globulin 3.2, troponin is 0.329. Abdominal pelvis and CT confirms a soft tissue mass invad ing the bladder wall. ASSESSMENT AND PLAN: 1. Metastatic endometrial adenocarcinoma. 2. Atrial fibrillation with rapid ventricular response. 3. Possible sepsis. DISCUSSION: The patient is on antibiotics and has improved. She has been evaluated for her cardiac issues and is found to be stable. Chemotherapy with radiation is the standard of care; however, patient's advance d age and medical problems. She also has transportation issues, her barriers to treatment. Case has been discussed with Dr. Varela. Recommend recovery from her acute illness and follow up in the out patient setting to discuss various options. I will check a CA-125 while she is here.
[2017-11-26] MEDS: Warfarin Sodium 5 MG TAB PO SCH (17:55)
[2017-11-26] MEDS: Metamucil PACK PO PRN (18:29)
--- NOTE | 2017-11-26 19:29 | PDOC.CTH ---
Cardiology Progress Note - Subjective The pt seen and examined. No overnight events. No cardiac complaints. The pt complains of intermittent chocking like sensation with cough. However, she does not cough or having SOB with meals. - Objective Vital Signs Temp Pulse Resp BP Pulse Ox 11/26/17 16:00 97.4 F L 101 H 20 127/64 93 L 11/26/17 09:10 97.5 F L 80 18 121/58 L 99 11/26/17 08:00 97.5 F L 80 18 99 Weight 158 lb 9.6 oz 11/25/17 11/26/17 11/27/17 06:59 06:59 06:59 Intake Total 340 1080 960 Output Total 400 Balance 340 1080 560 - Physical Examination General/Neuro: alert & oriented x3 Neck: no JVD present Lungs: CTA (diminished at bases) Heart: other: (irregular) Abdomen: soft Extremities: other: (No edemas) - Telemetry Telemetry Rhythm: AFib HR 80s - Labs Result Diagrams: 11/25/17 03:19 11/26/17 03:59 Troponin/CKMB CK-MB (CK-2) 3.1 ng/mL (0-6.6) 11/25/17 07:26 Troponin I 0.329 ng/mL (< 0.028) H* 11/25/17 07:26 - Assessment/Plan 1. Afib with RVR - HR well controlled with Diltiazem 180mg daily, digoxin 0.125mg daily, and Multaq 400mg BID. On Coumadin 5mg. Recheck INR tomorrow. 2. SOB due to asthma - stable with 1LNC; stable 3. HTN - stable with current med; cont. monitor 4. Hypothyroidism - managed by PCP 5. Endometrial cancer - at this moment, she refused chemo and radiation tx; managed by oncologist. SAGE reviewed Review of Systems - Review of Systems Constitutional: reports: no symptoms reported EENTM: reports: see HPI Respiratory: reports: see HPI Cardiac (ROS): reports: no symptoms reported ABD/GI: reports: no symptoms reported : reports: no symptoms reported Musculoskeletal: reports: no symptoms reported
--- NOTE | 2017-11-26 21:19 | PDOC.PN ---
- Subjective Encounter Start Date: 11/26/17 Encounter Start Time: 08:40 Pt feeling a little better, awaiting onc eval. Dr Torres ocnsulted, suspect she herve see her alter today. Pt denies F/C, does feel 'dizzy' which she admits is a spinning sensation she started having when she sits up, +nausea, no vomiting 10 point ROS performed and neg for all systems except as above - Objective Resuscitation Status: Resuscitation Status DNR:Do Not Resuscitate MAR Reviewed: Yes Vital Signs & Weight: Vital Signs (12 hours) Temp Pulse Resp BP Pulse Ox 11/26/17 19:00 97.7 F 93 18 112/59 L 93 L 11/26/17 16:00 97.4 F L 101 H 20 127/64 93 L Weight Weight 158 lb 9.6 oz I&O: 11/25/17 11/26/17 11/27/17 06:59 06:59 06:59 Intake Total 340 1080 960 Output Total 400 Balance 340 1080 560 Result Diagrams: 11/25/17 03:19 11/26/17 03:59 EKG Reviewed by me: Yes Phys Exam - Physical Examination Constitutional: NAD HEENT: PERRLA, moist MMs, sclera anicteric, oral pharynx no lesions Neck: no nodes, no JVD, supple, full ROM Respiratory: no wheezing, no rhonchi bibasilar crackles present Cardiovascular: no rub, irregular 3/6 hSM LLSB, irregularly irregular. Gastrointestinal: soft, non-tender, no distention, positive bowel sounds Musculoskeletal: pulses present, edema present Neurological: non-focal, normal sensation, moves all 4 limbs Lymphatic: no nodes Psychiatric: normal affect, A&O x 3 Skin: no rash, normal turgor, cap refill <2 seconds Dx/Plan (1) Chronic back pain Code(s): M54.9 - DORSALGIA, UNSPECIFIED; G89.29 - OTHER CHRONIC PAIN Status: Chronic Qualifiers: Back pain location: low back pain Back pain laterality: bilateral Sciatica presence: with sciatica Sciatica laterality: bilateral sciatica Qualified Code(s): M54.42 - Lumbago with sciatica, left side; M54.41 - Lumbago with sciatica, right side; M54.41 - Lumbago with sciatica, right side; G89.29 - Other chronic pain; G89.29 - Other chronic pain Comment: restarted tramadol BID (2) HTN (hypertension) Code(s): I10 - ESSENTIAL (PRIMARY) HYPERTENSION Status: Chronic Qualifiers: Hypertension type: essential hypertension Qualified Code(s): I10 - Essential (primary) hypertension (3) Asthma Code(s): J45.909 - UNSPECIFIED ASTHMA, UNCOMPLICATED Status: Acute Qualifiers: Asthma severity: mild Asthma persistence: intermittent Asthma complication type: uncomplicated Qualified Code(s): J45.20 - Mild intermittent asthma, uncomplicated (4) skilled nursing current use of anticoagulant Code(s): Z79.01 - [facility] (CURRENT) USE OF ANTICOAGULANTS Status: Chronic (5) Sepsis Code(s): A41.9 - SEPSIS, UNSPECIFIED ORGANISM Status: Acute Qualifiers: Sepsis type: sepsis due to unspecified organism Qualified Code(s): A41.9 - Sepsis, unspecified organism Comment: UCx neg, afebrile, WBC slightly vidhya,r but still elevated. (6) Hypokalemia Code(s): E87.6 - HYPOKALEMIA Status: Acute Comment: 3.3 today, repeat in AM (7) Endometrial cancer, grade I Code(s): C54.1 - MALIGNANT NEOPLASM OF ENDOMETRIUM Status: Chronic Comment: mets to bladder. Onc consulted, will follow up on their recommendations (8) Atrial fibrillation Code(s): I48.91 - UNSPECIFIED ATRIAL FIBRILLATION Status: Chronic Comment: paroxysmal, on anticoagulation (9) Demand ischemia Code(s): I24.8 - OTHER FORMS OF ACUTE ISCHEMIC HEART DISEASE Status: Acute Comment: due to Afib with RVR, SOB comes and goes, no F/c, cards to see - Plan cont current plan of care, plan discussed w/ family, continue antibiotics, PT/OT , social services specialist, out of bed/ambulate will ask palliative care to see, will follow up on Cardiology and Onc resul * .
[2017-11-26] MEDS: Montelukast Sodium 10 mg Tablet PO SCH (21:40)
[2017-11-26] MEDS: Latanoprost 0.005% Ophth Soln 2.5 ml Bottle EA EYE SCH (21:40)
[2017-11-26] MEDS: PRASTERONE 25 MG PO SCH (21:59)
[2017-11-27 05:17] LABS: INR-International Normal Ratio 1.9; Prothrombin Time 22.4 SEC (12.0-14.7)
[2017-11-27 05:31] LABS: Anion Gap 14 mmol/L (10-20); BUN (Urea Nitrogen) 34 mg/dL (9.8-20.1); Calc. Creatinine Clearance 51 mL/min (70-130); Calcium 9.2 mg/dL (7.8-10.44); Carbon Dioxide 22 mmol/L (23-31); Chloride 100 mmol/L (98-107); Estimated GFR-MDRD 61; Glucose 96 mg/dL (83-110); Magnesium 2.1 mg/dL (1.6-2.6); Potassium 3.9 mmol/L (3.5-5.1); Sodium 132 mmol/L (136-145)
[2017-11-27] MEDS: MEROPENEM 1 GM/50 ML 1 GM in Premix Bag 1 BAG IVPB SCH ×3 (05:34→21:45)
[2017-11-27] MEDS: Levothyroxine Sodium 88 MCG TAB PO SCH (05:34)
[2017-11-27 06:07] LABS: Band 10 % (5-11); Hemoglobin 13.1 g/dL (12.0-16.0); Lymphocytes 10 % (21-51); MDiff Complete? YES; Mean Corpuscular HGB CONC 32.3 g/dL (32.0-36.0); Mean Corpuscular Volume 86.7 fl (81.0-99.0); Mean Platelet Volume 7.7 fL (7.4-10.4); Monocytes 4 % (0-10); Neutrophil 76 % (42-75); PLT Morphology Comment Appears Adequate; Platelet Count 232 thou/uL (130-400); RBC Distribution Width 13.6 % (11.5-14.5); Red Blood Cell (RBC) Count 4.69 mill/uL (4.20-5.40); White Blood Cell (WBC) Count 29.6 thou/uL (4.8-10.8)
[2017-11-27] MEDS: Digoxin 0.125 MG TAB PO SCH (09:16)
[2017-11-27] MEDS: Dronedarone HCl 400 MG TAB PO SCH ×2 (09:16→16:12)
[2017-11-27] MEDS: Lactinex Tablet PO SCH (09:17)
[2017-11-27] MEDS: Fluticasone Propionate Nasal Spray 16 gm Bottle NASAL SCH ×2 (09:17→21:43)
[2017-11-27] MEDS: Hydrochlorothiazide 25 MG TAB PO SCH (09:17)
[2017-11-27] MEDS: Famotidine 20 MG TAB PO SCH ×2 (09:17→21:43)
[2017-11-27] MEDS: Furosemide 20 MG/2 ML VIAL SLOW IVP SCH (09:17)
[2017-11-27] MEDS: traMADol HCl 50 MG TAB PO SCH ×2 (09:18→21:43)
[2017-11-27] MEDS: Ubidecarenone 50 MG CAP PO SCH (09:18)
--- NOTE | 2017-11-27 09:33 | RAD ---
PORTABLE CHEST 1 VIEW: Date: 11/27/17 Time: 0715 hours HISTORY: Hypoxia. FINDINGS/IMPRESSION: Comparison made with exam of 11/24/17. The heart size is enlarged. Chronic changes are again seen. No lobar consolidation, pneumothoraces, f rank pulmonary edema, or large effusions are identified. POS: [facility]
--- NOTE | 2017-11-27 14:54 | PDOC.CTH ---
Cardiology Progress Note - Subjective Pt. seen and eval. No new complaints. She does not want further treatment for her cancer yet. - ROS chest pain - Objective Vital Signs Temp Pulse Pulse Pulse Resp BP BP 11/27/17 12:17 97.7 F 77 18 11/27/17 08:45 97.7 F 85 18 11/27/17 07:55 75 80 135/65 150/73 H 11/27/17 04:00 97.3 F L 77 20 BP Pulse Ox Pulse Ox Pulse Ox 11/27/17 12:17 109/59 L 90 L 11/27/17 08:45 157/70 H 96 11/27/17 07:55 93 L 93 L 11/27/17 04:00 129/58 L 92 L Weight 158 lb 3.2 oz 11/26/17 11/27/17 11/28/17 06:59 06:59 06:59 Intake Total 1080 1200 Output Total 400 200 Balance 1080 800 -200 - Physical Examination General/Neuro: alert & oriented x3 Neck: carotid US brisk Lungs: CTA Heart: RRR, other: (irreg.) Abdomen: soft - Telemetry Telemetry Rhythm: afib. rate controlled. - Labs Result Diagrams: 11/27/17 04:06 11/27/17 04:06 Troponin/CKMB CK-MB (CK-2) 3.1 ng/mL (0-6.6) 11/25/17 07:26 Troponin I 0.329 ng/mL (< 0.028) H* 11/25/17 07:26 - Assessment/Plan 1. Afib with RVR - HR well controlled with Diltiazem 180mg daily, digoxin 0.125mg daily, and Multaq 400mg BID. On Coumadin 5mg. Recheck INR tomorrow. 2. SOB due to asthma - stable with 1LNC; stable 3. HTN - stable with current med; cont. monitor 4. Hypothyroidism - managed by PCP 5. Endometrial cancer - at this moment, she refused chemo and radiation tx; managed by oncologist. SAGE reviewed Review of Systems - Review of Systems EENTM: reports: no symptoms reported Respiratory: reports: no symptoms reported Cardiac (ROS): reports: no symptoms reported ABD/GI: reports: constipated : reports: no symptoms reported Musculoskeletal: reports: no symptoms reported Neurological: reports: no symptoms reported
[2017-11-27] MEDS: Metamucil PACK PO PRN (16:12)
[2017-11-27] MEDS: Warfarin Sodium 5 MG TAB PO SCH (16:12)
--- NOTE | 2017-11-27 20:17 | PDOC.PN ---
- Subjective Encounter Start Date: 11/27/17 Encounter Start Time: 10:45 Pt feeling better overall, not wanting to do much wiht PT/OT, but felt better about it after we talked. no F/C, no N./V.d.C. Just back to bed after trying to have a BM. Last BM was yesterday. Pt has decided she does not want to pursue cancer Rx at this time Case discussed with Dr Torres. Rate controlled, remains in paroxysmal afib. 10 point ROS performed and neg for all systems except as per HPI - Objective Resuscitation Status: Resuscitation Status DNR:Do Not Resuscitate MAR Reviewed: Yes Vital Signs & Weight: Vital Signs (12 hours) Temp Pulse Pulse Pulse Resp BP BP 11/27/17 16:17 97.7 F 81 20 11/27/17 14:50 77 93 107/66 119/58 L 11/27/17 12:17 97.7 F 77 18 11/27/17 08:45 97.7 F 85 18 BP BP Pulse Ox Pulse Ox 11/27/17 16:17 123/64 90 L 11/27/17 14:50 119/63 96 11/27/17 12:17 109/59 L 90 L 11/27/17 08:45 157/70 H 96 Weight Weight 158 lb 3.2 oz I&O: 11/26/17 11/27/17 11/28/17 06:59 06:59 06:59 Intake Total 1080 1200 Output Total 400 200 Balance 1080 800 -200 Result Diagrams: 11/27/17 04:06 11/27/17 04:06 Radiology Reviewed by me: Yes EKG Reviewed by me: Yes Phys Exam - Physical Examination Constitutional: NAD HEENT: PERRLA, moist MMs, sclera anicteric, oral pharynx no lesions Neck: no nodes, no JVD, supple, full ROM Respiratory: no wheezing, no rales, no rhonchi, clear to auscultation bilateral Cardiovascular: RRR, no significant murmur, no rub Gastrointestinal: soft, non-tender, no distention, positive bowel sounds Musculoskeletal: pulses present, edema present Neurological: non-focal, normal sensation, moves all 4 limbs Lymphatic: no nodes Psychiatric: normal affect, A&O x 3 Skin: no rash, normal turgor, cap refill <2 seconds Dx/Plan (1) Chronic back pain Code(s): M54.9 - DORSALGIA, UNSPECIFIED; G89.29 - OTHER CHRONIC PAIN Status: Chronic Qualifiers: Back pain location: low back pain Back pain laterality: bilateral Sciatica presence: with sciatica Sciatica laterality: bilateral sciatica Qualified Code(s): M54.42 - Lumbago with sciatica, left side; M54.41 - Lumbago with sciatica, right side; M54.41 - Lumbago with sciatica, right side; G89.29 - Other chronic pain; G89.29 - Other chronic pain Comment: restarted tramadol BID (2) HTN (hypertension) Code(s): I10 - ESSENTIAL (PRIMARY) HYPERTENSION Status: Chronic Qualifiers: Hypertension type: essential hypertension Qualified Code(s): I10 - Essential (primary) hypertension (3) Asthma Code(s): J45.909 - UNSPECIFIED ASTHMA, UNCOMPLICATED Status: Acute Qualifiers: Asthma severity: mild Asthma persistence: intermittent Asthma complication type: uncomplicated Qualified Code(s): J45.20 - Mild intermittent asthma, uncomplicated (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 (6) Hypokalemia Code(s): E87.6 - HYPOKALEMIA Status: Acute Comment: 3.3 today, repeat in AM (7) Endometrial cancer, grade I Code(s): C54.1 - MALIGNANT NEOPLASM OF ENDOMETRIUM Status: Chronic Comment: mets to bladder. Onc consulted, will follow up on their recommendations (8) Atrial fibrillation Code(s): I48.91 - UNSPECIFIED ATRIAL FIBRILLATION Status: Chronic Comment: paroxysmal, on anticoagulation (9) Demand ischemia Code(s): I24.8 - OTHER FORMS OF ACUTE ISCHEMIC HEART DISEASE Status: Acute Comment: due to Afib with RVR, SOB comes and goes, no F/c, cards to see - Plan cont current plan of care, PT/OT, high school social studies tutor, respiratory therapy, out of bed/ambulate * . Pt wanting to go to SNF for rehab. [facility] [phone], very high
[2017-11-27] MEDS: Montelukast Sodium 10 mg Tablet PO SCH (21:43)
[2017-11-27] MEDS: Latanoprost 0.005% Ophth Soln 2.5 ml Bottle EA EYE SCH (21:43)
[2017-11-27] MEDS: Diabetic Tussin 200 MG/10 ML UDCUP PO PRN (21:45)
[2017-11-28 05:36] LABS: INR-International Normal Ratio 2.4
[2017-11-28] MEDS: Levothyroxine Sodium 88 MCG TAB PO SCH (05:53)
[2017-11-28] MEDS: MEROPENEM 1 GM/50 ML 1 GM in Premix Bag 1 BAG IVPB SCH ×3 (05:53→22:05)
[2017-11-28 05:55] LABS: ALT (SGPT) 14 U/L (8-55); AST (SGOT) 17 U/L (5-34); Alkaline Phosphatase 101 U/L (40-150); Anion Gap 14 mmol/L (10-20); BUN (Urea Nitrogen) 37 mg/dL (9.8-20.1); Band 2 % (5-11); Bilirubin, Total 0.5 mg/dL (0.2-1.2); Calc. Creatinine Clearance 49 mL/min (70-130); Carbon Dioxide 24 mmol/L (23-31); Chloride 98 mmol/L (98-107); Estimated GFR-MDRD 60; Globulin 2.7 g/dL (2.4-3.5); Glucose 99 mg/dL (83-110); Hemoglobin 12.1 g/dL (12.0-16.0); Lymphocytes 7 % (21-51); MDiff Complete? YES; Mean Corpuscular HGB CONC 32.4 g/dL (32.0-36.0); Mean Corpuscular Hemoglobin 27.7 pg (27.0-31.0); Mean Corpuscular Volume 85.6 fl (81.0-99.0); Mean Platelet Volume 7.1 fL (7.4-10.4); Monocytes 5 % (0-10); Neutrophil 86 % (42-75); Platelet Count 224 thou/uL (130-400); Potassium 3.6 mmol/L (3.5-5.1); Protein, Total 5.7 g/dL (6.0-8.3); RBC Distribution Width 13.1 % (11.5-14.5); Red Blood Cell (RBC) Count 4.37 mill/uL (4.20-5.40); Sodium 132 mmol/L (136-145); White Blood Cell (WBC) Count 26.3 thou/uL (4.8-10.8)
[2017-11-28] MEDS: Dronedarone HCl 400 MG TAB PO SCH ×2 (08:58→16:42)
[2017-11-28] MEDS: Digoxin 0.125 MG TAB PO SCH (08:58)
[2017-11-28] MEDS: Furosemide 20 MG/2 ML VIAL SLOW IVP SCH (08:59)
[2017-11-28] MEDS: Lactinex Tablet PO SCH (08:59)
[2017-11-28] MEDS: Fluticasone Propionate Nasal Spray 16 gm Bottle NASAL SCH ×2 (08:59→22:03)
[2017-11-28] MEDS: Famotidine 20 MG TAB PO SCH ×2 (08:59→22:03)
[2017-11-28] MEDS: Hydrochlorothiazide 25 MG TAB PO SCH (08:59)
[2017-11-28] MEDS: traMADol HCl 50 MG TAB PO SCH ×2 (09:00→22:04)
[2017-11-28] MEDS: Ubidecarenone 50 MG CAP PO SCH (09:00)
[2017-11-28] MEDS: Diabetic Tussin 200 MG/10 ML UDCUP PO PRN ×3 (09:06→22:09)
[2017-11-28] MEDS: Metamucil PACK PO PRN ×2 (09:06→22:09)
[2017-11-28] MEDS: Warfarin Sodium 5 MG TAB PO SCH (16:42)
--- NOTE | 2017-11-28 20:52 | PDOC.PN ---
- Subjective Encounter Start Date: 11/28/17 Encounter Start Time: 11:40 Pt feels 'bad' but cant elucidate more. denies SON, no chest pain, unsuccessfuly tried ot have a BM, but had a good one yesterday. NO F/c, no N/V/ D/c, decreased appetite. Tele has been stable, no acute events 10 point ROs performed and neg for all systems except as per HPI - Objective Resuscitation Status: Resuscitation Status DNR:Do Not Resuscitate Vital Signs & Weight: Vital Signs (12 hours) Temp Pulse Pulse Resp BP BP Pulse Ox 11/28/17 16:39 97.6 F 72 20 111/56 L 97 11/28/17 14:53 71 117/57 L 11/28/17 13:26 98 F 67 20 111/57 L 95 11/28/17 08:53 98.1 F 77 18 124/59 L 94 L Weight Weight 157 lb 14.4 oz I&O: 11/27/17 11/28/17 11/29/17 06:59 06:59 06:59 Intake Total 1200 240 Output Total 400 200 Balance 800 40 Result Diagrams: 11/29/17 04:19 11/29/17 04:19 Radiology Reviewed by me: Yes EKG Reviewed by me: Yes Phys Exam - Physical Examination Constitutional: NAD HEENT: PERRLA, moist MMs, sclera anicteric, oral pharynx no lesions Neck: no nodes, no JVD, supple, full ROM Respiratory: no wheezing, no rales, no rhonchi, clear to auscultation bilateral Cardiovascular: no significant murmur, no rub, irregular Gastrointestinal: soft, non-tender, no distention, positive bowel sounds Musculoskeletal: pulses present, edema present Neurological: non-focal, normal sensation, moves all 4 limbs Lymphatic: no nodes Psychiatric: normal affect, A&O x 3 Skin: no rash, normal turgor, cap refill <2 seconds Dx/Plan (1) HTN (hypertension) Code(s): I10 - ESSENTIAL (PRIMARY) HYPERTENSION Status: Chronic Qualifiers: Hypertension type: essential hypertension Qualified Code(s): I10 - Essential (primary) hypertension (2) Asthma Code(s): J45.909 - UNSPECIFIED ASTHMA, UNCOMPLICATED Status: Acute Qualifiers: Asthma severity: mild Asthma persistence: intermittent Asthma complication type: uncomplicated Qualified Code(s): J45.20 - Mild intermittent asthma, uncomplicated (3) [facility] current use of anticoagulant Code(s): Z79.01 - FDC (CURRENT) USE OF ANTICOAGULANTS Status: Chronic (4) Sepsis Code(s): A41.9 - SEPSIS, UNSPECIFIED ORGANISM Status: Acute Qualifiers: Sepsis type: sepsis due to unspecified organism Qualified Code(s): A41.9 - Sepsis, unspecified organism Comment: UCx neg, afebrile, WBC better but still elevated with bands (5) Hypokalemia Code(s): E87.6 - HYPOKALEMIA Status: Acute Comment: 3.3 today, repeat in AM (6) Endometrial cancer, grade I Code(s): C54.1 - MALIGNANT NEOPLASM OF ENDOMETRIUM Status: Chronic Comment: mets to bladder. Onc consulted, pt has decided to not pursue any treatment at this time (7) Atrial fibrillation Code(s): I48.91 - UNSPECIFIED ATRIAL FIBRILLATION Status: Chronic Comment: paroxysmal, on anticoagulation (8) Demand ischemia Code(s): I24.8 - OTHER FORMS OF ACUTE ISCHEMIC HEART DISEASE Status: Acute Comment: due to Afib with RVR, SOB comes and goes, no F/c, cards to see (9) Chronic back pain Code(s): M54.9 - DORSALGIA, UNSPECIFIED; G89.29 - OTHER CHRONIC PAIN Status: Chronic Qualifiers: Back pain location: low back pain Back pain laterality: bilateral Sciatica presence: with sciatica Sciatica laterality: bilateral sciatica Qualified Code(s): M54.42 - Lumbago with sciatica, left side; M54.41 - Lumbago with sciatica, right side; M54.41 - Lumbago with sciatica, right side; G89.29 - Other chronic pain; G89.29 - Other chronic pain Comment: restarted tramadol BID, better - Plan cont current plan of care, continue antibiotics, PT/OT, social security specialist, respiratory therapy, out of bed/ambulate * . arranging SNF rehab at [facility], hopefully approved and ready Thursday
[2017-11-28] MEDS: Montelukast Sodium 10 mg Tablet PO SCH (22:04)
[2017-11-28] MEDS: Latanoprost 0.005% Ophth Soln 2.5 ml Bottle EA EYE SCH (22:04)
[2017-11-29 05:16] LABS: INR-International Normal Ratio 2.9; Prothrombin Time 31.2 SEC (12.0-14.7)
[2017-11-29 05:29] LABS: Anion Gap 14 mmol/L (10-20); BUN (Urea Nitrogen) 36 mg/dL (9.8-20.1); Calc. Creatinine Clearance 55 mL/min (70-130); Calcium 9.1 mg/dL (7.8-10.44); Carbon Dioxide 25 mmol/L (23-31); Chloride 98 mmol/L (98-107); Estimated GFR-MDRD 68; Glucose 87 mg/dL (83-110); Magnesium 2.1 mg/dL (1.6-2.6); Potassium 3.6 mmol/L (3.5-5.1); Sodium 133 mmol/L (136-145)
[2017-11-29 05:57] LABS: Band 11 % (5-11); Lymphocytes 8 % (21-51); MDiff Complete? YES; Neutrophil 81 % (42-75)
[2017-11-29 05:58] LABS: Hemoglobin 11.9 g/dL (12.0-16.0); Mean Corpuscular HGB CONC 32.7 g/dL (32.0-36.0); Mean Corpuscular Volume 85.6 fl (81.0-99.0); Mean Platelet Volume 7.9 fL (7.4-10.4); Platelet Count 262 thou/uL (130-400); RBC Distribution Width 13.1 % (11.5-14.5); Red Blood Cell (RBC) Count 4.26 mill/uL (4.20-5.40); White Blood Cell (WBC) Count 26.4 thou/uL (4.8-10.8)
[2017-11-29] MEDS ORDERED: Meropenem 1 GM in Sodium Chloride 0.9% 100 ML IVPB SCH (06:00)
[2017-11-29] MEDS: Levothyroxine Sodium 88 MCG TAB PO SCH (06:38)
[2017-11-29] MEDS: Digoxin 0.125 MG TAB PO SCH (09:59)
[2017-11-29] MEDS: Dronedarone HCl 400 MG TAB PO SCH ×2 (10:00→18:20)
[2017-11-29] MEDS: Ubidecarenone 50 MG CAP PO SCH (10:01)
[2017-11-29] MEDS: Lactinex Tablet PO SCH (10:02)
[2017-11-29] MEDS: Furosemide 20 MG/2 ML VIAL SLOW IVP SCH (10:02)
[2017-11-29] MEDS: Famotidine 20 MG TAB PO SCH ×2 (10:02→22:57)
[2017-11-29] MEDS: Fluticasone Propionate Nasal Spray 16 gm Bottle NASAL SCH ×2 (10:02→22:57)
[2017-11-29] MEDS: traMADol HCl 50 MG TAB PO SCH ×2 (10:03→22:58)
[2017-11-29] MEDS: Hydrochlorothiazide 25 MG TAB PO SCH (10:16)
--- NOTE | 2017-11-29 12:16 | PDOC.PN ---
- Subjective Encounter Start Date: 11/29/17 Encounter Start Time: 10:00 pt doesnt feel good, but cannot elaborate. walked about 5 feet iwth PT, but complains she doesnt have her own walker here. Complains of SOB, but minimal cough, no fevers or chills, no sputum, no hemoptysis. complains of constipation but had a good BM. labs reviewed, no chils, sweats, or rigors, no N/V/D 10 point ROS performed and neg for all systems except as per HPI - Objective Resuscitation Status: Resuscitation Status DNR:Do Not Resuscitate MAR Reviewed: Yes Vital Signs & Weight: Vital Signs (12 hours) Temp Pulse Resp BP BP Pulse Ox 11/29/17 10:00 132/60 11/29/17 09:59 70 11/29/17 07:41 98.6 F 70 18 93 L 11/29/17 07:40 98.6 F 70 18 132/60 93 L 11/29/17 04:32 97 11/29/17 04:00 98.4 F 70 14 117/56 L 97 11/29/17 02:29 94 L Weight Weight 157 lb 12.8 oz I&O: 11/28/17 11/29/17 11/30/17 06:59 06:59 06:59 Intake Total 240 530 240 Output Total 200 100 Balance 40 430 240 Result Diagrams: 11/29/17 04:19 11/29/17 04:19 EKG Reviewed by me: Yes Phys Exam - Physical Examination Constitutional: NAD HEENT: PERRLA, moist MMs, sclera anicteric, oral pharynx no lesions Neck: no nodes, no JVD, supple, full ROM Respiratory: no wheezing, no rales, no rhonchi, clear to auscultation bilateral Cardiovascular: no rub, irregular murmur stable Gastrointestinal: soft, non-tender, no distention, positive bowel sounds Musculoskeletal: no edema, pulses present Neurological: non-focal, normal sensation, moves all 4 limbs Lymphatic: no nodes Psychiatric: normal affect, A&O x 3 Skin: no rash, normal turgor, cap refill <2 seconds Dx/Plan (1) HTN (hypertension) Code(s): I10 - ESSENTIAL (PRIMARY) HYPERTENSION Status: Chronic Qualifiers: Hypertension type: essential hypertension Qualified Code(s): I10 - Essential (primary) hypertension (2) Asthma Code(s): J45.909 - UNSPECIFIED ASTHMA, UNCOMPLICATED Status: Chronic Qualifiers: Asthma severity: mild Asthma persistence: intermittent Asthma complication type: uncomplicated Qualified Code(s): J45.20 - Mild intermittent asthma, uncomplicated (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 Code(s): Z79.01 - NURSING HOME (CURRENT) USE OF ANTICOAGULANTS Status: Chronic Comment: INR up to 2.9, pharmacy managing (4) Sepsis Code(s): A41.9 - SEPSIS, UNSPECIFIED ORGANISM Status: Acute Qualifiers: Sepsis type: sepsis due to unspecified organism Qualified Code(s): A41.9 - Sepsis, unspecified organism Comment: UCx neg, afebrile, WBC better but still elevated with bands, CXR neg, no symptoms, no abd discomfort (5) Hypokalemia Code(s): E87.6 - HYPOKALEMIA Status: Acute Comment: 3.3 today, repeat in AM (6) Endometrial cancer, grade I Code(s): C54.1 - MALIGNANT NEOPLASM OF ENDOMETRIUM Status: Chronic Comment: mets to bladder. Onc consulted, pt has decided to not pursue any treatment at this time (7) Atrial fibrillation Code(s): I48.91 - UNSPECIFIED ATRIAL FIBRILLATION Status: Chronic Comment: paroxysmal, on anticoagulation (8) Demand ischemia Code(s): I24.8 - OTHER FORMS OF ACUTE ISCHEMIC HEART DISEASE Status: Acute Comment: due to Afib with RVR, SOB comes and goes, no F/c, cards without new recs (9) Chronic back pain Code(s): M54.9 - DORSALGIA, UNSPECIFIED; G89.29 - OTHER CHRONIC PAIN Status: Chronic Qualifiers: Back pain location: low back pain Back pain laterality: bilateral Sciatica presence: with sciatica Sciatica laterality: bilateral sciatica Qualified Code(s): M54.42 - Lumbago with sciatica, left side; M54.41 - Lumbago with sciatica, right side; M54.41 - Lumbago with sciatica, right side; G89.29 - Other chronic pain; G89.29 - Other chronic pain Comment: restarted tramadol BID, better - Plan cont current plan of care, PT/OT, social services assistant, respiratory therapy, out of bed/ambulate * . PT deconditioned. [place] [facility] for rehab pending approval, hopefully tomorrow.
[2017-11-29] MEDS: Warfarin Sodium 5 MG TAB PO SCH (18:20)
[2017-11-29] MEDS: Latanoprost 0.005% Ophth Soln 2.5 ml Bottle EA EYE SCH (22:58)
[2017-11-29] MEDS: Montelukast Sodium 10 mg Tablet PO SCH (22:58)
[2017-11-30 05:05] LABS: INR-International Normal Ratio 3.3; Prothrombin Time 35.4 SEC (12.0-14.7)
[2017-11-30 05:35] LABS: Band 3 % (5-11); Hemoglobin 12.2 g/dL (12.0-16.0); Lymphocytes 8 % (21-51); MDiff Complete? YES; Mean Corpuscular HGB CONC 32.2 g/dL (32.0-36.0); Mean Corpuscular Hemoglobin 28.2 pg (27.0-31.0); Mean Corpuscular Volume 87.8 fl (81.0-99.0); Mean Platelet Volume 7.4 fL (7.4-10.4); Monocytes 3 % (0-10); Neutrophil 86 % (42-75); Platelet Count 299 thou/uL (130-400); RBC Distribution Width 13.1 % (11.5-14.5); Red Blood Cell (RBC) Count 4.32 mill/uL (4.20-5.40); White Blood Cell (WBC) Count 30.1 thou/uL (4.8-10.8)
[2017-11-30] MEDS: Levothyroxine Sodium 88 MCG TAB PO SCH (06:01)
[2017-11-30] MEDS: Fluticasone Propionate Nasal Spray 16 gm Bottle NASAL SCH ×2 (09:36→21:39)
[2017-11-30] MEDS: Furosemide 20 MG/2 ML VIAL SLOW IVP SCH (09:36)
[2017-11-30] MEDS: Hydrochlorothiazide 25 MG TAB PO SCH (09:37)
[2017-11-30] MEDS: Ubidecarenone 50 MG CAP PO SCH (09:37)
[2017-11-30] MEDS: Lactinex Tablet PO SCH (09:38)
[2017-11-30] MEDS: Digoxin 0.125 MG TAB PO SCH (09:38)
[2017-11-30] MEDS: traMADol HCl 50 MG TAB PO SCH ×2 (09:38→21:32)
[2017-11-30] MEDS: Dronedarone HCl 400 MG TAB PO SCH ×2 (09:38→19:26)
[2017-11-30] MEDS: Famotidine 20 MG TAB PO SCH ×2 (09:39→21:33)
[2017-11-30] MEDS: Diabetic Tussin 200 MG/10 ML UDCUP PO PRN ×2 (09:42→19:26)
--- NOTE | 2017-11-30 09:57 | PDOC.PN ---
- Subjective Encounter Start Date: 11/30/17 Encounter Start Time: 11:00 Subjective: Patient with trouble swallowing pills this AM. Chronic pain. Dysuria. -: Hematuria. No other symptoms. - Objective Resuscitation Status: Resuscitation Status DNR:Do Not Resuscitate MAR Reviewed: Yes Vital Signs & Weight: Vital Signs (12 hours) Temp Pulse Resp BP BP Pulse Ox 11/30/17 09:39 123/64 11/30/17 09:38 77 11/30/17 07:42 98.9 F 62 18 123/64 11/30/17 05:08 94 L 11/30/17 04:00 98.1 F 68 14 135/63 92 L Weight Weight 157 lb 14.4 oz I&O: 11/29/17 11/30/17 12/01/17 06:59 06:59 06:59 Intake Total 530 1080 Output Total 100 350 Balance 430 730 Result Diagrams: 11/30/17 04:04 11/29/17 04:19 Phys Exam - Physical Examination Constitutional: NAD HEENT: moist MMs Respiratory: no wheezing, no rales, no rhonchi Cardiovascular: RRR, no significant murmur Gastrointestinal: soft, positive bowel sounds TTP suprapubic, mild, no guarding Musculoskeletal: no edema Neurological: non-focal, moves all 4 limbs Psychiatric: A&O x 3 Deviation from normal: depressed appearing Dx/Plan (1) Atrial fibrillation Code(s): I48.91 - UNSPECIFIED ATRIAL FIBRILLATION Status: Chronic Comment: paroxysmal, on anticoagulation (2) [facility] current use of anticoagulant Code(s): Z79.01 - USP (CURRENT) USE OF ANTICOAGULANTS Status: Chronic Comment: INR up to 3.3, pharmacy managing (3) Demand ischemia Code(s): I24.8 - OTHER FORMS OF ACUTE ISCHEMIC HEART DISEASE Status: Acute Comment: due to Afib with RVR, SOB comes and goes, no F/c, cards without new recs (4) Hypokalemia Code(s): E87.6 - HYPOKALEMIA Status: Resolved (5) Sepsis Code(s): A41.9 - SEPSIS, UNSPECIFIED ORGANISM Status: Ruled-out Qualifiers: Sepsis type: sepsis due to unspecified organism Qualified Code(s): A41.9 - Sepsis, unspecified organism Comment: UCx neg, afebrile, WBC better but still elevated with bands, CXR neg, no symptoms, no abd discomfort (6) Asthma Code(s): J45.909 - UNSPECIFIED ASTHMA, UNCOMPLICATED Status: Chronic Qualifiers: Asthma severity: mild Asthma persistence: intermittent Asthma complication type: uncomplicated Qualified Code(s): J45.20 - Mild intermittent asthma, uncomplicated (7) Chronic back pain Code(s): M54.9 - DORSALGIA, UNSPECIFIED; G89.29 - OTHER CHRONIC PAIN Status: Chronic Qualifiers: Back pain location: low back pain Back pain laterality: bilateral Sciatica presence: with sciatica Sciatica laterality: bilateral sciatica Qualified Code(s): M54.42 - Lumbago with sciatica, left side; M54.41 - Lumbago with sciatica, right side; M54.41 - Lumbago with sciatica, right side; G89.29 - Other chronic pain; G89.29 - Other chronic pain Comment: restarted tramadol BID, better (8) HTN (hypertension) Code(s): I10 - ESSENTIAL (PRIMARY) HYPERTENSION Status: Chronic Qualifiers: Hypertension type: essential hypertension Qualified Code(s): I10 - Essential (primary) hypertension (9) Endometrial cancer, grade I Code(s): C54.1 - MALIGNANT NEOPLASM OF ENDOMETRIUM Status: Chronic Comment: mets to bladder. Onc consulted, pt has decided to not pursue any treatment at this time (10) Leukocytosis Code(s): D72.829 - ELEVATED WHITE BLOOD CELL COUNT, UNSPECIFIED Status: Acute Comment: negative cultures, no evidence of infection, possibly secondary to recurrent endometrial cancer invading bladder - Plan cont current plan of care, PT/OT Transfer to SNF/rehab today if ok to swallow, if not will need ST recs and -: then likely transfer tomorrow. * . - Discharge Day Encounter end time: 11:30
[2017-11-30] MEDS: Phenazopyridine HCl 97.5 MG TABLET PO PRN (10:44)
[2017-11-30] MEDS ORDERED: WARFARIN PO PRN (14:07)
[2017-11-30] MEDS ORDERED: Warfarin Sodium 5 MG TAB PO SCH (17:00)
[2017-11-30] MEDS: Montelukast Sodium 10 mg Tablet PO SCH (21:32)
[2017-11-30] MEDS: Latanoprost 0.005% Ophth Soln 2.5 ml Bottle EA EYE SCH (21:39)
[2017-12-01 06:32] LABS: Prothrombin Time 43.2 SEC (12.0-14.7)
[2017-12-01 06:49] LABS: INR-International Normal Ratio 4.3
[2017-12-01] MEDS: Levothyroxine Sodium 88 MCG TAB PO SCH (06:54)
--- NOTE | 2017-12-01 09:47 | PDOC.PN ---
- Subjective Encounter Start Date: 12/01/17 Encounter Start Time: 12:40 Subjective: Patient with persistent lower abd pain and dysuria from the cancer. -: No other specific complaints. - Objective Resuscitation Status: Resuscitation Status DNR:Do Not Resuscitate MAR Reviewed: Yes Vital Signs & Weight: Vital Signs (12 hours) Temp Pulse Resp BP Pulse Ox 12/01/17 08:00 98 F 63 18 127/58 L 94 L 12/01/17 04:00 97.5 F L 57 L 17 130/58 L 96 12/01/17 03:17 93 L Weight Weight 157 lb 12.8 oz I&O: 11/30/17 12/01/17 12/02/17 06:59 06:59 06:59 Intake Total 1080 Output Total 350 450 Balance 730 -450 Result Diagrams: 11/30/17 04:04 11/29/17 04:19 Phys Exam - Physical Examination Constitutional: NAD HEENT: moist MMs Respiratory: no wheezing, no rales, no rhonchi Cardiovascular: RRR, no significant murmur Gastrointestinal: soft, positive bowel sounds TTP suprapubically Neurological: non-focal, moves all 4 limbs Psychiatric: normal affect, A&O x 3 Dx/Plan (1) Atrial fibrillation Code(s): I48.91 - UNSPECIFIED ATRIAL FIBRILLATION Status: Chronic Comment: paroxysmal, on anticoagulation (2) alf current use of anticoagulant Code(s): 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 Status: Chronic Comment: INR up to 4, holding Coumadin for a few days (3) Demand ischemia Code(s): I24.8 - OTHER FORMS OF ACUTE ISCHEMIC HEART DISEASE Status: Acute Comment: due to Afib with RVR, SOB comes and goes, no F/c, cards without new recs (4) Hypokalemia Code(s): E87.6 - HYPOKALEMIA Status: Resolved (5) Sepsis Code(s): A41.9 - SEPSIS, UNSPECIFIED ORGANISM Status: Ruled-out Qualifiers: Sepsis type: sepsis due to unspecified organism Qualified Code(s): A41.9 - Sepsis, unspecified organism Comment: UCx neg, afebrile, WBC better but still elevated with bands, CXR neg, no symptoms, no abd discomfort (6) Asthma Code(s): J45.909 - UNSPECIFIED ASTHMA, UNCOMPLICATED Status: Chronic Qualifiers: Asthma severity: mild Asthma persistence: intermittent Asthma complication type: uncomplicated Qualified Code(s): J45.20 - Mild intermittent asthma, uncomplicated (7) Chronic back pain Code(s): M54.9 - DORSALGIA, UNSPECIFIED; G89.29 - OTHER CHRONIC PAIN Status: Chronic Qualifiers: Back pain location: low back pain Back pain laterality: bilateral Sciatica presence: with sciatica Sciatica laterality: bilateral sciatica Qualified Code(s): M54.42 - Lumbago with sciatica, left side; M54.41 - Lumbago with sciatica, right side; M54.41 - Lumbago with sciatica, right side; G89.29 - Other chronic pain; G89.29 - Other chronic pain Comment: restarted tramadol BID, better (8) HTN (hypertension) Code(s): I10 - ESSENTIAL (PRIMARY) HYPERTENSION Status: Chronic Qualifiers: Hypertension type: essential hypertension Qualified Code(s): I10 - Essential (primary) hypertension (9) Endometrial cancer, grade I Code(s): C54.1 - MALIGNANT NEOPLASM OF ENDOMETRIUM Status: Chronic Comment: mets to bladder. Onc consulted, pt has decided to not pursue any treatment at this time (10) Leukocytosis Code(s): D72.829 - ELEVATED WHITE BLOOD CELL COUNT, UNSPECIFIED Status: Acute Comment: negative cultures, no evidence of infection, possibly secondary to recurrent endometrial cancer invading bladder - Plan cont current plan of care, PT/OT, speech therapy Appreciate ST recs. Ok to d/c to SNF with ST and electrical stimulation -: treatment. INR supratherapeutic, no active bleeding. Hold Coumadin for a -: few days at SNF and restart when INR therapeutic. * . - Discharge Day Encounter end time: 13:15
[2017-12-01] MEDS: Ubidecarenone 50 MG CAP PO SCH (10:34)
[2017-12-01] MEDS: traMADol HCl 50 MG TAB PO SCH (10:35)
[2017-12-01] MEDS: Phenazopyridine HCl 97.5 MG TABLET PO PRN (10:38)
[2017-12-01] MEDS: Dronedarone HCl 400 MG TAB PO SCH ×2 (10:38→16:53)
[2017-12-01] MEDS: Hydrochlorothiazide 25 MG TAB PO SCH (10:39)
[2017-12-01] MEDS: Famotidine 20 MG TAB PO SCH (10:40)
[2017-12-01] MEDS: Lactinex Tablet PO SCH (10:40)
[2017-12-01] MEDS: Digoxin 0.125 MG TAB PO SCH (10:40)
[2017-12-01] MEDS: Furosemide 20 MG/2 ML VIAL SLOW IVP SCH (10:41)
[2017-12-01] MEDS: Fluticasone Propionate Nasal Spray 16 gm Bottle NASAL SCH (10:41)
[2017-12-01] MEDS: Metamucil PACK PO PRN (10:56)
[2017-12-01] MEDS ORDERED: traMADol HCl 50 MG TAB PO SCH ×2 (12:45→17:00)
[2017-12-01] MEDS ORDERED: Phenazopyridine HCl 97.5 MG TABLET PO SCH (15:00)
[2017-12-01 16:10] VITALS: BP 126/60; TEMP 98.6
[2017-12-01] MEDS ORDERED: guaiFENesin ER 600 MG TAB PO SCH (21:00)
--- NOTE | 2017-12-02 04:33 | DIS ---
PRIMARY CARE PHYSICIAN: Hunter Pinto MD REASON FOR ADMISSION: Dyspnea with non-ST elevation MT and sepsis. DISCHARGE DIAGNOSES: 1. Paroxysmal atrial fibrillation on anticoagulation. 2. Demand ischemia. 3. Sepsis, ruled out. 4. Asthma. 5. Chronic back pain. 6. Hypertension. 7. 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 8. Leukocytosis, likely related to cancer. PROCEDURES: 1. CT of the abdomen and pelvis with contrast showing a bladder mass with adjustment of mild stranding changes, diverticulosis, large left pelvis and perirectal lymph nodes, bilateral renal cyst and hyperdensity emanating from the left kidney, stable and a pancreatic cyst. 2. Echocardiogram showing atrial fibrillation, but otherwise poor visualization EF of 60-65%. CONSULTATIONS: 1. Cardiology, Dr. Torres. 2. Heme/Oncology, Dr. Paloma Estrada for Dr. Varela. 3. LUMBER RACKER, Dr. Rosas. PERTINENT LABORATORY DATA: White blood cell count ranging between 25,000 and 30 ,000. INR was 4.3 at discharge. SUMMARY OF HOSPITAL COURSE: This is an 87-year-old female with underlying history of paroxysmal atrial fibrillation on chronic anticoagulation with warfarin, who was noted to have a history of endometrial cancer, status post hysterectomy in the past. She had a warfarin stopped 5 days prior to admission , so she get a bladder biopsy. 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 Follow with Dr. Rosas, the patient had developed intermittent shortness of breath and found to have a severe leukocytosis with bandemia. In the emergency room, she had an elevated troponin as well and elevated BNP and then a CT abdomen as above. The patient was put in the hospital for possible sepsis. She was put on broad spectrum antibiotics. Blood cultures and urine culture were negative for infection. She had persistence of her leukocytosis, but no other signs of infection. Her antibiotics were eventually stopped. Palliative care was consulted and Heme/Oncology was consulted as well as Cardiology for the elevated troponins. The patient's options were discussed with patient and she and family determined that they did not want to do any further treatment for the cancer at this point, but just wanted to transition to a halfway facility. The patient did have some weakness and trouble swallowing, had speech therapy evaluate her during hospitalization and she was determined to be safe to swallow with pureed in crushed medications and thin liquids. She had her tramadol increased slightly during her hospitalization for better improved control. Family determined to transition to the halfway facility and then eventually are going to be looking at comfort care and hospice, although not at this point yet. Of note, she was made DNR during her hospitalization. DISCHARGE MANAGEMENT: Discharged to skilled nurse facility at [facility]. ACTIVITY: As tolerated. DIET: Regular diet with pureed solids and pills either one at a time with pureed or crushed with pureed. THERAPY: Occupational, physical, and speech therapy. She is still on oxygen 2 liters and can be weaned as tolerated. Follow up with Dr. Varela if desired as an outpatient with Dr. Pinto as needed. I spent 35 minutes arranging the details of this discharge. AIMEE
[2017-12-02] MEDS ORDERED: Metamucil PACK PO SCH (09:00)
--- NOTE | 2017-12-06 01:13 | EKG ---
Test Reason : SOB Blood Pressure : / mmHG Vent. Rate : 097 BPM Atrial Rate : 097 BPM P-R Int : 240 ms QRS Dur : 102 ms QT Int : 366 ms P-R-T Axes : 065 054 -03 degrees QTc Int : 464 ms Sinus rhythm with 1st degree A-V block with Premature atrial complexes Incomplete right bundle branch block Borderline ECG Confirmed by LANEY MARIA D.O. ([id number]), field map editor ELENA LANGLEY ([id number]) on 12/06/2017 1:13:28 AM Referred By: BOY Confirmed By:LANEY MARIA D.O.
== END 2017-12-01 17:55 | DRG 309 ==
LOC: ERS 18:36 → 2NO 23:00
PROVIDERS: ADMIT Internal Medicine; ATTEND Internal Medicine
DX: I48.0 Paroxysmal atrial fibrillation (principal); I24.8 Other forms of acute ischemic heart disease; C79.11 Secondary malignant neoplasm of bladder; C54.1 Malignant neoplasm of endometrium; E03.9 Hypothyroidism, unspecified; I10 Essential (primary) hypertension; E78.5 Hyperlipidemia, unspecified; E87.6 Hypokalemia; Z51.5 Encounter for palliative care; Z66 Do not resuscitate; M19.90 Unspecified osteoarthritis, unspecified site; J45.20 Mild intermittent asthma, uncomplicated; G89.29 Other chronic pain; M54.9 Dorsalgia, unspecified; Z88.1 Allergy status to other antibiotic agents; Z88.8 Allergy status to other drugs, medicaments and biological substances; Z79.01 Long term (current) use of anticoagulants; Z79.899 Other long term (current) drug therapy
CPT/HCPCS: 36415; 49180; 71045; 74177; 77012; 80048; 80053; 81003; 81015; 82553; 83735; 83880; 84443; 84484; 85025; 85610; 85730; 86304; 87086; 88305; 88333; 88342; 93005; 93306; 96365; 96367; A4216; G8978-GP-CJ; G8979-GP-CI; G8987-GO-CL; G8988-GO-CJ; G8996-GN-CJ; G8997-GN-CH; J1160; J1940; J2185; J2250; J3010; J3370; J7050